=== PATIENT | female | born 1945 | race Caucasian/White ===

== ENCOUNTER 2018-08-25 11:58 | Observation (INO) | payer MEDICARE, SELFPAY ==
[2018-08-25] VITALS (12 sets, daily range): BP systolic 102–152; BP diastolic 33–48; PULSE 46–62; RESP 15–23; TEMP 36.4–37.2; O2SAT 94–98; BMI 26.2; BMI 24.1
--- NOTE | 2018-08-25 13:07 | CT_ITS ---
STUDY: CT BRAIN WITHOUT CONTRAST REASON FOR EXAM: Female, 73 years old. Confusion. RADIATION DOSAGE (If Supplied By Facility): CTDIvol = ( 44.99 ) mGy, DLP = ( 779.24 ) mGycm TECHNIQUE: Transaxial CT imaging of the brain was performed without administration of intravenous contrast material. Individualized dose optimization techniques were used for this CT. COMPARISON: 12/15/2016. FINDINGS: Normal soft tissue structures. Normal calvarium. There is moderate cerebral atrophy with widening of the extra-axial spaces and ventricular dilatation. There are areas of decreased attenuation within the white matter tracts of the supratentorial brain, consistent with microvascular disease changes. Focal density/calcification is again seen in the right thalamus unchanged since the prior exam. Normal brainstem. Normal cerebellum. There is no intracranial hemorrhage. There are no findings of an acute ischemic infarction. Normal visualized paranasal sinuses. CT/Brain/Head without Contrast IMPRESSION: 1. Chronic involutional changes of the brain. 2. No acute intracranial process. 3. No significant change since the previous examination. Electronically Signed: Tahir Ward MD at 13:49 EDT Tel , Service support ,
--- NOTE | 2018-08-25 13:07 | EKG12_ITS ---
Test Reason : NEURO S/SX Blood Pressure : / mmHG Vent. Rate : 061 BPM Atrial Rate : 061 BPM P-R Int : 118 ms QRS Dur : 082 ms QT Int : 430 ms P-R-T Axes : -20 023 054 degrees QTc Int : 432 ms Normal sinus rhythm Normal ECG Confirmed by DENISE LUGO, RUTH ([id number]), editor map SIMRAN MEEK ([id number]) on 08/30/2018 9:05:27 AM Referred By: XAVIER/DANNA Confirmed By:RUTH WALKER MD
--- NOTE | 2018-08-25 13:07 | RAD_ITS ---
STUDY: X-RAY CHEST REASON FOR EXAM: Female, 73 years old. Chest pain TECHNIQUE: Frontal view of the chest COMPARISON: None. FINDINGS: The lungs are clear. There are no pleural effusions. There is no pneumothorax. The heart is normal in size. The visualized osseous structures are within normal limits. RAD/Chest 1 View IMPRESSION: No acute thoracic pathology. Electronically Signed: Dash Hicks, at 13:51 EDT Tel , Service support ,
--- NOTE | 2018-08-25 13:15 | ED.VISSUMM ---
- ER Visit Summary Date of Service: 08/25/18 Chief Complaint: Left-sided weakness History of Present Illness: The patient is a 73 F who presents for episode of weakness this morning. Patient has history of dementia and knows her name at baseline. This morning family states the patient was staring around and did not answer questions. When asked what her name was she would not answer correctly but instead would give different names. Daughter thought that she was listing to the left while she was trying to help her walk to the bathroom. The weakness and staring off have since resolved. Patient is not on any blood thinners. She has a history of heavy tobacco use but is currently not a smoker. History of COPD. She lives at home with family. No known recent illnesses. Review of systems limited secondary to patient unable to answer these questions. Physical Examination: Vital signs: afebrile, hemodynamically stable, no hypoxia on room air General: well nourished, well developed, in no distress Skin: warm, dry, no rash, no pallor HEENT: normocephalic and atraumatic; PERRL, EOMI, moist mucous membranes Cardiovascular: regular rate and rhythm with holosystolic murmur, no peripheral edema, 2+ pulses all distal extremities Respiratory: No increased work of breathing, lungs have diffuse end expiratory wheezing Abdominal: Abdomen is soft, nontender with normoactive bowel sounds, no guarding or rebound, no masses MSK: Moves all extremities, no deformities, normal strength Neuro: Awake and alert, not oriented. Unable to tell me the month or her age, and patient states that she does not know these. Family states she would not no these at baseline. No facial droop, sensation and motor function intact and symmetric based on limited exam. Patient unable to follow directions and cooperate with a full NIH. Test Results: Clinical Impression(s) from Imaging Studies Brain CT 08/25/18 13:07 IMPRESSION: 1. Chronic involutional changes of the brain. 2. No acute intracranial process. 3. No significant change since the previous examination. Electronically Signed: Tahir Ward MD at 13:49 EDT Tel , Service support , Chest X-Ray 08/25/18 13:07 IMPRESSION: No acute thoracic pathology. Electronically Signed: Dash Hicks, at 13:51 EDT Tel , Service support , Abnormal Lab Results 08/25/18 08/25/18 08/25/18 12:10 12:10 12:10 WBC 9.5 RBC 3.78 L Hgb 11.9 L Hct 38.2 MCV 101.1 H MCH 31.5 MCHC 31.2 L RDW 13.5 RDW Differential 50.1 H Plt Count 243 MPV 10.1 Immature Gran % (Auto) 0.200 Neut % (Auto) 49.8 Lymph % (Auto) 37.6 [place] % (Auto) 8.6 Eos % (Auto) 3.4 Baso % (Auto) 0.4 Absolute Neuts (auto) 4.8 Absolute Lymphs (auto) 3.58 Total Counted Not Reportable PT 13.5 INR 1.1 APTT 34.1 Sodium 140 Potassium 5.1 Chloride 107 Carbon Dioxide 29.0 Anion Gap 4 L BUN 24 H Creatinine 1.11 H Estim Creat Clear Calc 35.17 Est GFR (MDRD) Af Amer 62 Est GFR (MDRD) Non-Af 51 L BUN/Creatinine Ratio 21.6 H Glucose 82 Calcium 9.2 Troponin I < 0.015 Urine Color Urine Clarity Urine pH Ur Specific [place] Urine Protein Urine Glucose (UA) Urine Ketones Urine Occult Blood Urine Nitrite Urine Bilirubin Urine Urobilinogen Ur Leukocyte Esterase Urine RBC Urine WBC Ur Squamous Epith Cells Urine Bacteria Urine Mucus 08/25/18 14:22 WBC RBC Hgb Hct MCV MCH MCHC RDW RDW Differential Plt Count MPV Immature Gran % (Auto) Neut % (Auto) Lymph % (Auto) [place] % (Auto) Eos % (Auto) Baso % (Auto) Absolute Neuts (auto) Absolute Lymphs (auto) Total Counted PT INR APTT Sodium Potassium Chloride Carbon Dioxide Anion Gap BUN Creatinine Estim Creat Clear Calc Est GFR (MDRD) Af Amer Est GFR (MDRD) Non-Af BUN/Creatinine Ratio Glucose Calcium Troponin I Urine Color Yellow Urine Clarity Cloudy Urine pH 8.0 Ur Specific [place] 1.010 Urine Protein 15 H Urine Glucose (UA) Normal Urine Ketones Negative Urine Occult Blood 50 H Urine Nitrite Positive H Urine Bilirubin Negative Urine Urobilinogen Normal Ur Leukocyte Esterase 500 H Urine RBC 0-5 SEEN Urine WBC 25-50 SEEN Ur Squamous Epith Cells 0 SEEN Urine Bacteria 3+ Urine Mucus 0 SEEN Medications Given Sodium Chloride () 500 mls @ 999 mls/hr IV .Q31M ONE Last Admin: 08/25/18 13:50 Dose: 999 mls/hr Emergency Department Course and Treatment: Family's description of patient's deficits this morning was concerning for unilateral weakness, with symptoms currently resolved. This is concerning for a TIA. The NIH exam is difficult to complete due to patient's inability to fully cooperate from her Alzheimer's dementia. However no focal deficits are noted on the exam. Stroke workup was performed. Head CT showed no intracranial hemorrhage or mass lesion. Urine was concerning for UTI, however patient's episode of focal neuro deficits cannot be explained by this. Patient's EKG showed a sinus rhythm with no ischemic changes. Troponin negative. Labs were otherwise unremarkable. Patient was not a candidate for TPA due to the low NIH (attributed to difficulty answering questions, which is baseline for patient) and last known well had been the prior night. Patient was discussed with the hospitalist for admission for further TIA workup. Treatment Plan: [] Disposition: [] Impression: Transient left-sided weakness, TIA, history of Alzheimer's dementia This note was generated with [employer] dictation software. It may contain incorrect words, spelling, and punctuation that were not noted in review of the chart prior to signing ED Disposition - Plan for ED Patient: Referrals: Vernon Moore DO [Primary Care Provider] -
--- NOTE | 2018-08-25 13:18 | ED.DCSUM_ITS ---
- ER Visit Summary Date of Service: 08/25/18 Chief Complaint: Left-sided weakness History of Present Illness: The patient is a 73 F who presents for episode of weakness this morning. Patient has history of dementia and knows her name at baseline. This morning family states the patient was staring around and did not answer questions. When asked what her name was she would not answer correctly but instead would give different names. Daughter thought that she was listing to the left while she was trying to help her walk to the bathroom. The weakness and staring off have since resolved. Patient is not on any blood thinners. She has a history of heavy tobacco use but is currently not a smoker. History of COPD. She lives at home with family. No known recent illnesses. Review of systems limited secondary to patient unable to answer these questions. Physical Examination: Vital signs: afebrile, hemodynamically stable, no hypoxia on room air General: well nourished, well developed, in no distress Skin: warm, dry, no rash, no pallor HEENT: normocephalic and atraumatic; PERRL, EOMI, moist mucous membranes Cardiovascular: regular rate and rhythm with holosystolic murmur, no peripheral edema, 2+ pulses all distal extremities Respiratory: No increased work of breathing, lungs have diffuse end expiratory wheezing Abdominal: Abdomen is soft, nontender with normoactive bowel sounds, no guarding or rebound, no masses MSK: Moves all extremities, no deformities, normal strength Neuro: Awake and alert, not oriented. Unable to tell me the month or her age, and patient states that she does not know these. Family states she would not no these at baseline. No facial droop, sensation and motor function intact and symmetric based on limited exam. Patient unable to follow directions and cooperate with a full NIH. Test Results: Clinical Impression(s) from Imaging Studies Brain CT 08/25/18 13:07 IMPRESSION: 1. Chronic involutional changes of the brain. 2. No acute intracranial process. 3. No significant change since the previous examination. Electronically Signed: Tahir Ward MD at 13:49 EDT Tel , Service support , Chest X-Ray 08/25/18 13:07 IMPRESSION: No acute thoracic pathology. Electronically Signed: Dash Hicks, at 13:51 EDT Tel , Service support , Abnormal Lab Results 08/25/18 08/25/18 08/25/18 12:10 12:10 12:10 WBC 9.5 RBC 3.78 L Hgb 11.9 L Hct 38.2 MCV 101.1 H MCH 31.5 MCHC 31.2 L RDW 13.5 RDW Differential 50.1 H Plt Count 243 MPV 10.1 Immature Gran % (Auto) 0.200 Neut % (Auto) 49.8 Lymph % (Auto) 37.6 [place] % (Auto) 8.6 Eos % (Auto) 3.4 Baso % (Auto) 0.4 Absolute Neuts (auto) 4.8 Absolute Lymphs (auto) 3.58 Total Counted Not Reportable PT 13.5 INR 1.1 APTT 34.1 Sodium 140 Potassium 5.1 Chloride 107 Carbon Dioxide 29.0 Anion Gap 4 L BUN 24 H Creatinine 1.11 H Estim Creat Clear Calc 35.17 Est GFR (MDRD) Af Amer 62 Est GFR (MDRD) Non-Af 51 L BUN/Creatinine Ratio 21.6 H Glucose 82 Calcium 9.2 Troponin I < 0.015 Urine Color Urine Clarity Urine pH Ur Specific [place] Urine Protein Urine Glucose (UA) Urine Ketones Urine Occult Blood Urine Nitrite Urine Bilirubin Urine Urobilinogen Ur Leukocyte Esterase Urine RBC Urine WBC Ur Squamous Epith Cells Urine Bacteria Urine Mucus 08/25/18 14:22 WBC RBC Hgb Hct MCV MCH MCHC RDW RDW Differential Plt Count MPV Immature Gran % (Auto) Neut % (Auto) Lymph % (Auto) [place] % (Auto) Eos % (Auto) Baso % (Auto) Absolute Neuts (auto) Absolute Lymphs (auto) Total Counted PT INR APTT Sodium Potassium Chloride Carbon Dioxide Anion Gap BUN Creatinine Estim Creat Clear Calc Est GFR (MDRD) Af Amer Est GFR (MDRD) Non-Af BUN/Creatinine Ratio Glucose Calcium Troponin I Urine Color Yellow Urine Clarity Cloudy Urine pH 8.0 Ur Specific [place] 1.010 Urine Protein 15 H Urine Glucose (UA) Normal Urine Ketones Negative Urine Occult Blood 50 H Urine Nitrite Positive H Urine Bilirubin Negative Urine Urobilinogen Normal Ur Leukocyte Esterase 500 H Urine RBC 0-5 SEEN Urine WBC 25-50 SEEN Ur Squamous Epith Cells 0 SEEN Urine Bacteria 3+ Urine Mucus 0 SEEN Medications Given Sodium Chloride () 500 mls @ 999 mls/hr IV .Q31M ONE Last Admin: 08/25/18 13:50 Dose: 999 mls/hr Emergency Department Course and Treatment: Family's description of patient's deficits this morning was concerning for unilateral weakness, with symptoms currently resolved. This is concerning for a TIA. The NIH exam is difficult to complete due to patient's inability to fully cooperate from her Alzheimer's dementia. However no focal deficits are noted on the exam. Stroke workup was performed. Head CT showed no intracranial hemorrhage or mass lesion. Urine was concerning for UTI, however patient's episode of focal neuro deficits cannot be explained by this. Patient's EKG showed a sinus rhythm with no ischemic changes. Troponin negative. Labs were otherwise unremarkable. Patient was not a candidate for TPA due to the low NIH (attributed to difficulty answering questions, which is baseline for patient) and last known well had been the prior night. Patient was discussed with the hospitalist for admission for further TIA workup. Treatment Plan: [] Disposition: [] Impression: Transient left-sided weakness, TIA, history of Alzheimer's dementia This note was generated with [employer] dictation software. It may contain incorrect words, spelling, and punctuation that were not noted in review of the chart prior to signing ED Disposition - Plan for ED Patient: Referrals: Vernon Moore DO [Primary Care Provider] -
--- NOTE | 2018-08-25 13:18 | NURSING ---
NO OLD EKGS
[2018-08-25 13:26] LABS: Absolute Lymphocyte Count 3.58 X10^3/ul (0.83-4.51); Absolute Neutrophil Count 4.8 X10^3/uL (2.0-7.7); Basophil# 0.04 X10^3/uL; Basophil% 0.4 % (0-1); Eosinophil# 0.32 X10^3/uL; Eosinophils% 3.4 % (0-5); Hematocrit 38.2 % (37-47); Hemoglobin 11.9 g/dl (12.0-15.0); Lymphocyte # 3.58 X10^3/ul (4.0); Lymphocyte % 37.6 % (19-41); Mean Corp Hgb Conc 31.2 g/gl (32-36); Mean Corpuscular Hgb 31.5 pg (27.0-32.0); Mean Corpuscular Volume 101.1 fL (81-99); Mean Platelet Vol. 10.1 fl (6.2-12.0); Monocyte# 0.82 X10^3/uL; Monocyte% 8.6 % (0-10); Neutrophil # 4.75 X10^3/uL (2.7-7.7); Neutrophil % 49.8 % (47-70); Platelet Count 243 K/mm3 (150-450); RBC Distribution Width CV 13.5 % (11.6-14.6); RBC Distribution Width SD 50.1 fl (35.1-43.9); Red Blood Count 3.78 M/mm3 (4.2-5.4); White Blood Count 9.5 K/mm3 (4.4-11.0)
[2018-08-25 13:27] LABS: POSITIVE COUNT NO; POSITIVE DIFFERENTIAL NO; POSITIVE MORPHOLOGY NO
[2018-08-25 13:29] LABS: International Normalized Ratio 1.1; Prothrombin Time (Protime)PT. 13.5 SECONDS (11.7-14.9)
[2018-08-25 13:30] LABS: Partial Thromboplast Time 34.1 Seconds (24.1-36.2)
--- NOTE | 2018-08-25 13:35 | ED.RN ---
Pt unable to follow commands to complete an NIH assessment. Dr Pereira gave orders to discontinue NIH
[2018-08-25 13:42] LABS: Anion Gap 4 (5-15); BUN 24 mg/dL (7-18); BUN/Creat Ratio 21.6 RATIO (10-20); Calcium,Total 9.2 mg/dL (8.5-10.1); Chloride 107 mmol/L (98-107); Creatinine, Serum 1.11 mg/dL (0.55-1.02); EST Glomerular Filtration Rate 51 mL/min (>60); Est Glom Filt Rate - Afr Amer 62 mL/min (>60); Estimated Creatinine Clearance 35.17 ml/min; Glucose 82 mg/dL (74-106); Potassium 5.1 mmol/L (3.5-5.1); Sodium Level 140 mmol/L (136-145)
[2018-08-25 14:28] LABS: Mucous, Urine 0 SEEN /hpf (<or=2+); Squamous Epithelial Cells - UA 0 SEEN /hpf (5-10)
[2018-08-25 14:32] LABS: Color, Urine Yellow (Yellow); Glucose, Dipstick Normal (Normal); Ketone-Dipstick Negative (Negative); Leukocyte Esterase-Dipstick 500 /ul (Negative); Nitrite-Dipstick Positive (Negative); Occult Blood-Urine 50 /ul (Negative); Protein-Dipstick 15 mg/dl (Negative); Urine Bilirubin Dipstick Negative (Negative); Urine Clarity Cloudy (Clear); Urine Urobilinogen Normal (Normal)
[2018-08-25 14:39] LABS: Bacteria 3+ /hpf (None Seen); Red Blood Cells-Urine 0-5 SEEN /hpf (0-5); White Blood Cells 25-50 SEEN /hpf (0-5)
--- NOTE | 2018-08-25 14:43 | NURSING ---
pcu tia obs monique
[2018-08-25] MEDS: Aspirin 300 MG Suppository RECTAL (15:19)
--- NOTE | 2018-08-25 15:22 | PCM.HP.STD ---
Problem List (1) Delirium Status: Acute History of Present Illness Date of Admission: 08/25/18 Chief Complaint: confusion. left sided weakness The patient is a 73 year old F who awoke today and was very confused. Patient was able to eat breakfast without incident but patient's family contacted other family members and recommended to evaluate for stroke. Noted to have left facial droop but also some left upper extremity weakness. Patient has advanced dementia and poor performance status at baseline. Patient at baseline cannot finish complete sentences and is confused during the day. [] Past Medical History Medical History: Medical History (Last Updated 08/25/18 @ 15:25 by Tai Clemens DO) Anxiety F41.9 CVA (cerebral vascular accident) I63.9 Dementia F03.90 Allergies No Known Allergies Allergy (Verified 08/25/18 15:18) Home Medications: Ambulatory Orders Medication Instructions Recorded Amlodipine Besylate 2.5 mg DAILY 08/25/18 Cyanocobalamin (Vitamin B-12) 2,500 mcg PO DAILY 08/25/18 [Vitamin B12] Escitalopram Oxalate 15 mg PO DAILY 08/25/18 Memantine HCl [Memantine HCl ER] 28 mg DAILY 08/25/18 Mirtazapine 15 mg DAILY 08/25/18 Risperidone 0.25 mg BID PRN PRN 08/25/18 Tolterodine Tartrate [Tolterodine 2 mg PO DAILY 08/25/18 Tartrate ER] Lives: With Family Smoking Status: Former smoker Tobacco Use: Non-smoker Alcohol: None Review of Systems Comment: Unable to obtain review of systems from patient as she is confused. Unable to gather family history from her as she is confused as well. VTE Information - Inpt Only VTE Present on Admission: No VTE Mechan Device Prophylaxis: None VTE Pharm Prophylaxis ordered?: Yes Patient Problems: Active and Suspected Problems Delirium (Acute) - Physical Exam General: - - Awake. Able to tell me her name but cannot time where she is nor the date. Anxious. Afebrile. HEENT: Atraumatic, PERRLA, Normocephalic, - - No scleral icterus Oral: Moist Mucosa, Dry Mucosa Neck: No Nodes, Thyroid Normal Size and Texture Lungs: Clear to auscultation, Normal air movement, No rhonchi, No wheeze Cardiovascular: Regular rate, Regular Rhythm, Normal S1, Normal S2, No murmurs Abdomen: Bowel Sounds Present, Soft, Non Tender, Non-Distended, No Hepato-splenomegaly Extremities: No edema, No Calf Tenderness Skin: No rashes, No breakdown Musculoskeletal: No Tenderness to Palpation of Joints or Extremities, No Muscle Wasting Neurological: - - Limited neurologic exam given the patient's confusion and dementia. Muscle strength appears to be 5 out of 5 in the upper extremity's bilaterally 4 out of 5 in the left lower extremity with prior that may be related with pain or just her overall condition not able to follow commands. Psych/Mental Status: Normal Affect, Appropriate Vital Signs Temp Pulse Resp BP Pulse Ox 37.2 C 57 L 15 126/48 H 94 08/25/18 14:00 08/25/18 15:19 08/25/18 15:19 08/25/18 15:19 08/25/18 15:19 Oxygen Delivery Method Room Air Weight: 65 kg Body Mass Index (BMI) 26.2 Laboratory Tests Past 24 Hrs 08/25/18 08/25/18 08/25/18 12:10 12:10 12:10 WBC 9.5 RBC 3.78 L Hgb 11.9 L Hct 38.2 MCV 101.1 H MCH 31.5 MCHC 31.2 L RDW 13.5 RDW Differential 50.1 H Plt Count 243 MPV 10.1 Immature Gran % (Auto) 0.200 Neut % (Auto) 49.8 Lymph % (Auto) 37.6 [place] % (Auto) 8.6 Eos % (Auto) 3.4 Baso % (Auto) 0.4 Absolute Neuts (auto) 4.8 Absolute Lymphs (auto) 3.58 Total Counted Not Reportable PT 13.5 INR 1.1 APTT 34.1 Sodium 140 Potassium 5.1 Chloride 107 Carbon Dioxide 29.0 Anion Gap 4 L BUN 24 H Creatinine 1.11 H Estim Creat Clear Calc 35.17 Est GFR (MDRD) Af Amer 62 Est GFR (MDRD) Non-Af 51 L BUN/Creatinine Ratio 21.6 H Glucose 82 Calcium 9.2 Troponin I < 0.015 Urine Color Urine Clarity Urine pH Ur Specific [place] Urine Protein Urine Glucose (UA) Urine Ketones Urine Occult Blood Urine Nitrite Urine Bilirubin Urine Urobilinogen Ur Leukocyte Esterase Urine RBC Urine WBC Ur Squamous Epith Cells Urine Bacteria Urine Mucus 08/25/18 14:22 WBC RBC Hgb Hct MCV MCH MCHC RDW RDW Differential Plt Count MPV Immature Gran % (Auto) Neut % (Auto) Lymph % (Auto) [place] % (Auto) Eos % (Auto) Baso % (Auto) Absolute Neuts (auto) Absolute Lymphs (auto) Total Counted PT INR APTT Sodium Potassium Chloride Carbon Dioxide Anion Gap BUN Creatinine Estim Creat Clear Calc Est GFR (MDRD) Af Amer Est GFR (MDRD) Non-Af BUN/Creatinine Ratio Glucose Calcium Troponin I Urine Color Yellow Urine Clarity Cloudy Urine pH 8.0 Ur Specific [place] 1.010 Urine Protein 15 H Urine Glucose (UA) Normal Urine Ketones Negative Urine Occult Blood 50 H Urine Nitrite Positive H Urine Bilirubin Negative Urine Urobilinogen Normal Ur Leukocyte Esterase 500 H Urine RBC 0-5 SEEN Urine WBC 25-50 SEEN Ur Squamous Epith Cells 0 SEEN Urine Bacteria 3+ Urine Mucus 0 SEEN Clinical Impression(s) from Imaging Studies Brain CT 08/25/18 13:07 IMPRESSION: 1. Chronic involutional changes of the brain. 2. No acute intracranial process. 3. No significant change since the previous examination. Electronically Signed: Tahir Ward MD at 13:49 EDT Tel , Service support , Chest X-Ray 08/25/18 13:07 IMPRESSION: No acute thoracic pathology. Electronically Signed: Dash Hicks, at 13:51 EDT Tel , Service support , Assessment/Plan All Active Problems Delirium (Acute) 1. Acute delirium: Patient did have some left-sided weakness in the left lower extremity but is difficult to ascertain if this is actual legitimate weakness or just due to pain or an inability to follow commands. My feeling is that most of this is more metabolic or just a waxing and waning of her mental status due to her advanced dementia. Proceed further with additional neurologic evaluation with CT angiogram of the head and neck, echocardiogram and a repeat head CT on the . Continue with aspirin. Patient will have physical, occupational and speech therapy evaluate. Patient unable to be passed for a dysphasia evaluation in the emergency room due to this will need to wait on speech therapy to see her to advance her diet. Given the patient's dementia, and the fact that we do not have conscious sedation available for MRIs, I would not bother to order an MRI because of note the patient would not be able to tolerate the procedure. Since his met possibly metabolic we will treat the possible UTI as well as some IV fluids as her mucous membranes are dry. 2. Dementia: Likely vascular type given her prior history of strokes which were diagnosed after the fact. 3. Advanced care planning: Discussed with family at bedside. Recommended no CPR. I did tell them that they could think about it and decide later point whether this admission or later point but I strongly advised against CPR and feeding tube. 4. DVT prophylaxis with low molecular weight heparin 5. Disposition: Patient being brought under observation status. 6. Pyuria: Unclear if this is actual urinary tract infection or not but given patient's dementia will elect to treat it. We will use IV ceftriaxone for now. Code Visit OBSV E&M: 53491 Initial observation care L3
--- NOTE | 2018-08-25 16:53 | ECHOD_ITS ---
Reason For Study: TIA/CVA Procedure This was a 2D Doppler, Color Flow transthoracic echocardiogram. Exam performed portable in patient room. Left Ventricle Normal LV size. Left ventricular systolic function is lower limits of normal. The estimated ejection fraction is 50 %. Stage 2 diastolic dysfunction. No regional wall motion abnormalities noted. Right Ventricle Normal RV size. Normal systolic function. Atria Normal left atrium. Normal right atrium. Mitral Valve There is moderate mitral annular calcification. Trivial eccentric mitral valve insufficiency. Tricuspid Valve Normal tricuspid valve. Mild to moderate (1-2+) tricuspid valve insufficiency. Pulmonary artery systolic pressure is 40 mmHg. Aortic Valve Trisinus/trileaflet aortic valve. Moderate focal aortic valve calcification. Moderately severe (3+) eccentric aortic valve insufficiency. Pulmonic Valve Normal pulmonic valve. Great Vessels Normal aortic root. The pulmonary artery is normal size. Normal inferior vena cava. Pericardium/Pleural No pericardial effusion. Medication Performed a rapid injection of agitated mix of 9 cc saline and 1cc air to assess for atrial septal defect. MMode/2D Measurements & Calculations LVIDd: 4.8 cm IVSd: 1.3 cm LVOT diam: 2.0 cm LVIDs: 3.4 cm LVPWd: 1.1 cm RVDd: 2.7 cm FS: 30.0 % LVOT area: 3.0 cm2 Ao root diam: 2.1 cm LAV(MOD-bp): 39.7 ml LVAd ap4: 27.6 cm2 LAV(MOD-bp) Indexed: 24.0 ml/m2 EDV(MOD-sp4): 84.7 ml LAV(MOD-sp2): 40.2 ml EDV(sp4-el): 87.5 ml LAV(MOD-sp4): 34.0 ml LVAs ap4: 15.2 cm2 ESV(MOD-sp4): 30.3 ml ESV(sp4-el): 30.6 ml EF(MOD-sp4): 64.2 % EF(sp4-el): 65.0 % SV(MOD-sp4): 54.4 ml SV(sp4-el): 56.9 ml LA A4 area: 15.0 cm2 LA dimension(2D): 2.8 cm RA A4 area: 11.3 cm2 Time Measurements MV dec time: 0.18 sec Doppler Measurements & Calculations MV E max mickey: 100.3 cm/sec Lat Peak E' Mickey: 6.3 cm/sec Med Peak E' Mickey: 5.0 cm/sec MV A max mickey: 111.6 cm/sec E/E' lat: 15.9 E/E' med: 19.9 MV E/A: 0.90 MV V2 max: 123.4 cm/sec MV P1/2t max mickey: 94.0 cm/sec Ao V2 max: 395.1 cm/sec MV max P.1 mmHg MV P1/2t: 100.8 msec Ao max P.4 mmHg MV V2 mean: 66.1 cm/sec MV dec slope: 273.3 cm/sec2 Ao V2 mean: 278.2 cm/sec MV mean P.0 mmHg MVA(P1/2t): 2.2 cm2 Ao mean P.5 mmHg MV V2 VTI: 42.9 cm Ao V2 VTI: 109.7 cm MVA(VTI): 2.4 cm2 ALISSON(I,D): 0.95 cm2 ALISSON(V,D): 0.90 cm2 AI max mickey: 468.8 cm/sec LV V1 max: 118.0 cm/sec SV(LVOT): 103.8 ml AI max P.0 mmHg LV V1 max P.6 mmHg LV V1 mean P.3 mmHg AI dec slope: 328.9 cm/sec2 LV V1 mean: 86.9 cm/sec AI P1/2t: 417.6 msec LV V1 VTI: 34.4 cm PA V2 max: 87.6 cm/sec TR max mickey: 295.9 cm/sec TR max P.0 mmHg Interpretation Summary Normal LV size. Left ventricular systolic function is lower limits of normal. The estimated ejection fraction is 50 %. Stage 2 diastolic dysfunction. Mild to moderate (1-2+) tricuspid valve insufficiency. Pulmonary artery systolic pressure is 40 mmHg. Moderate focal aortic valve calcification. Moderately severe (3+) eccentric aortic valve insufficiency. Ordering Physician: Tai Clemens Referring Physician: Vernon Moore Performed By: Estee Nolasco, VIKI, RVT
--- NOTE | 2018-08-25 17:53 | NURSING ---
[facility] limited d/t confusion
[2018-08-25] MEDS: Ceftriaxone 1 GM/50 ML BAG IV (18:09)
[2018-08-26] VITALS (14 sets, daily range): BP systolic 108–151; BP diastolic 37–58; PULSE 47–64; RESP 14–20; TEMP 36.6–37.3; O2SAT 93–97; BMI 24.1
[2018-08-26] MEDS: 0.9% Normal Saline 1,000 ML 75 ML IV ×2 (04:57→22:42)
[2018-08-26 06:34] LABS: Cholesterol 184 mg/dL (200); High Density Lipoprotein 44 mg/dL; Triglycerides 128 mg/dL; Very Low Density Lipoprotein 26 mg/dL (5-40)
[2018-08-26] MEDS: Enoxaparin 40 MG/0.4 ML Syringe SC ×2 (09:06→10:32)
[2018-08-26] MEDS: Memantine Hydrochloride 10 MG Tablet PO ×2 (09:06→22:42)
[2018-08-26] MEDS: Escitalopram Oxalate 10 MG Tablet 15 MG PO (09:06)
[2018-08-26] MEDS: Ceftriaxone 1 GM/50 ML BAG IV (09:06)
[2018-08-26] MEDS: amLODIPine 2.5 MG Tablet PO (09:06)
[2018-08-26] MEDS: Tolterodine Tartrate 2 MG CAP.SA PO (09:06)
[2018-08-26] MEDS: Mirtazapine 15 MG Tablet PO (09:06)
--- NOTE | 2018-08-26 09:24 | NURSING ---
[facility] limited d/t confusion
--- NOTE | 2018-08-26 10:17 | PN_ITS ---
Patient Problems: Active and Suspected Problems (Last Updated 08/25/18 @ 15:25 by Tai Clemens DO) Delirium (Acute) Subjective: Patient is a 73-year-old lady with history of advanced Alzheimer's dementia presented with transient right-sided weakness. Patient was also found to have acute cystitis on admission admitted to monitored bed for subsequent management. An MRI was not ordered in view of patient not being cooperative (attributed to his underlying dementia) Objective: GENERAL: Patient in no apparent distress HEENT: Atraumatic; moist oral mucosa EYES; Anicteric, Normal Conjunctiva NECK; supple, normal thyroid, no distended JVD. RESPIRATORY: Diminished to auscultation bilaterally, CARDIOVASCULAR: Regular S1 S2, no audible murmurs GI: soft, non-tender, normoactive bowel sounds, : No Renal angle tenderness; EXTREMITIES: No edema, no clubbing, no cyanosis. NEURO: Awake; no lateralizing signs. SKIN: No Rash PSYCH; Normal affect Vitals/I&O's: Vital Signs Temp Pulse Resp BP Pulse Ox 97.9 F 51 L 16 149/58 H 93 08/26/18 08:50 08/26/18 08:50 08/26/18 08:50 08/26/18 08:50 08/26/18 08:50 Oxygen Delivery Method Room Air Weight: 61.8 kg Body Mass Index (BMI) 24.1 Intake and Output for Last 24 Hours 08/24/18 08/25/18 08/26/18 22:59 23:59 23:59 Intake Total 566 / 566 Balance 566 / 566 Laboratory Results 08/25/18 12:10: WBC 9.5, RBC 3.78 L, Hgb 11.9 L, Hct 38.2, MCV 101.1 H, MCH 31.5, MCHC 31.2 L, RDW 13.5, RDW Differential 50.1 H, Plt Count 243, MPV 10.1, Immature Gran % (Auto) 0.200, Neut % (Auto) 49.8, Lymph % (Auto) 37.6, [place] % (Auto) 8.6, Eos % (Auto) 3.4, Baso % (Auto) 0.4, Absolute Neuts (auto) 4.8, Absolute Lymphs (auto) 3.58, Total Counted Not Reportable 08/25/18 12:10: PT 13.5, INR 1.1, APTT 34.1 08/25/18 12:10: Sodium 140, Potassium 5.1, Chloride 107, Carbon Dioxide 29.0, Anion Gap 4 L, BUN 24 H, Creatinine 1.11 H, Estim Creat Clear Calc 35.17, Est GFR (MDRD) Af Amer 62, Est GFR (MDRD) Non-Af 51 L, BUN/Creatinine Ratio 21.6 H, Glucose 82, Calcium 9.2, Troponin I < 0.015 08/25/18 14:22: Urine Color Yellow, Urine Clarity Cloudy, Urine pH 8.0, Ur Specific [place] 1.010, Urine Protein 15 H, Urine Glucose (UA) Normal, Urine Ketones Negative, Urine Occult Blood 50 H, Urine Nitrite Positive H, Urine Bilirubin Negative, Urine Urobilinogen Normal, Ur Leukocyte Esterase 500 H, Urine RBC 0-5 SEEN, Urine WBC 25-50 SEEN, Ur Squamous Epith Cells 0 SEEN, Urine Bacteria 3+, Urine Mucus 0 SEEN 08/26/18 05:20: Triglycerides 128, Cholesterol 184, LDL Cholesterol 114, VLDL Cholesterol 26, HDL Cholesterol 44 Current Medications Acetaminophen (Tylenol) 650 mg PO Q6H PRN PRN PRN Reason: Mild Pain (1-3)/Temp > 100.7 F Amlodipine Besylate (Norvasc) 2.5 mg PO DAILY [facility] Last Admin: 08/26/18 09:06 Dose: 2.5 mg Aspirin (Aspirin, Baby) 81 mg PO DAILY@0800 [facility] Enoxaparin Sodium (Lovenox) 40 mg SC DAILY@1000 [facility] Last Admin: 08/26/18 09:06 Dose: 40 mg Escitalopram Oxalate (Lexapro) 15 mg PO DAILY [facility] Last Admin: 08/26/18 09:06 Dose: 15 mg Haloperidol Lactate (Haldol) 1 mg IM Q6H PRN PRN PRN Reason: combatitiveness Sodium Chloride () 500 mls @ 999 mls/hr IV .Q31M ONE Last Admin: 08/25/18 13:50 Dose: 999 mls/hr Sodium Chloride () 1,000 mls @ 75 mls/hr IV .[id number] [facility] Last Admin: 08/26/18 04:57 Dose: 75 mls/hr Ceftriaxone Sodium (Rocephin) 1 gm in 50 mls @ 100 mls/hr IV Q24 [facility] Last Admin: 08/26/18 09:06 Dose: 100 mls/hr Magnesium Hydroxide (Milk Of Magnesia) 30 ml PO DAILY PRN PRN Reason: Constipation Memantine (Namenda) 10 mg PO BID [facility] Last Admin: 08/26/18 09:06 Dose: 10 mg Mirtazapine (Remeron) 15 mg PO DAILY [facility] Last Admin: 08/26/18 09:06 Dose: 15 mg Ondansetron HCl (Zofran) 4 mg IV Q8H PRN PRN PRN Reason: NAUSEA Risperidone (Risperdal) 0.25 mg PO BID PRN PRN PRN Reason: AGITATION Sodium Chloride () 5 - 15 ml IV UD PRN PRN Reason: SALINE FLUSH Tolterodine Tartrate (Detrol La) 2 mg PO DAILY [facility] Last Admin: 08/26/18 09:06 Dose: 2 mg Medical Necessity - Tobacco Use Smoking Status: Former smoker Tobacco Use: Non-smoker Assessment/Plan All Active Problems (Last Updated 08/25/18 @ 15:25 by Tai Clemens DO) Delirium (Acute) Patient is a 73-year-old lady with history of advanced Alzheimer's dementia presented with transient right-sided weakness. Patient was also found to have acute cystitis on admission admitted to [facility] bed for subsequent management. An MRI was not ordered in view of patient not being cooperative (attributed to his underlying dementia) 1. Transient ischemic attack patient presented with transient left-sided weakness which has since resolved. CT of the head obtained demonstrated only chronic involutional changes of the brain. CTA was ordered for subsequent evaluation. An MRI was not ordered in view of concerns for patient's cooperation 2. Acute delirium secondary to acute cystitis 3. Acute cystitis urine culture so far positive for E. coli final identification and sensitivities pending patient is currently on Rocephin 4. Dementia (vascular versus Alzheimer's) with behavioral agitation attributed to patient underlying infectious etiology patient is on haloperidol as needed 5. DVT prophylaxis SC Lovenox Active Medications Acetaminophen (Tylenol) 650 mg PO Q6H PRN PRN PRN Reason: Mild Pain (1-3)/Temp > 100.7 F Amlodipine Besylate (Norvasc) 2.5 mg PO DAILY [facility] Last Admin: 08/26/18 09:06 Dose: 2.5 mg Aspirin (Aspirin, Baby) 81 mg PO DAILY@0800 [facility] Last Admin: 08/26/18 11:03 Dose: Not Given Enoxaparin Sodium (Lovenox) 40 mg SC DAILY@1000 [facility] Last Admin: 08/26/18 10:32 Dose: 40 mg Escitalopram Oxalate (Lexapro) 15 mg PO DAILY [facility] Last Admin: 08/26/18 09:06 Dose: 15 mg Haloperidol Lactate (Haldol) 1 mg IM Q6H PRN PRN PRN Reason: combatitiveness Sodium Chloride () 500 mls @ 999 mls/hr IV .Q31M [facility] Last Admin: 08/25/18 13:50 Dose: 999 mls/hr Sodium Chloride () 1,000 mls @ 75 mls/hr IV .[id number] [facility] Last Admin: 08/26/18 04:57 Dose: 75 mls/hr Ceftriaxone Sodium (Rocephin) 1 gm in 50 mls @ 100 mls/hr IV Q24 [facility] Last Admin: 08/26/18 09:06 Dose: 100 mls/hr Magnesium Hydroxide (Milk Of Magnesia) 30 ml PO DAILY PRN PRN Reason: Constipation Memantine (Namenda) 10 mg PO BID [facility] Last Admin: 08/26/18 09:06 Dose: 10 mg Mirtazapine (Remeron) 15 mg PO DAILY [facility] Last Admin: 08/26/18 09:06 Dose: 15 mg Ondansetron HCl (Zofran) 4 mg IV Q8H PRN PRN PRN Reason: NAUSEA Risperidone (Risperdal) 0.25 mg PO BID PRN PRN PRN Reason: AGITATION Sodium Chloride () 5 - 15 ml IV UD PRN PRN Reason: SALINE FLUSH Tolterodine Tartrate (Detrol La) 2 mg PO DAILY [facility] Last Admin: 08/26/18 09:06 Dose: 2 mg Clinical Impression(s) from Imaging Studies Brain CT 08/25/18 13:07 IMPRESSION: 1. Chronic involutional changes of the brain. 2. No acute intracranial process. 3. No significant change since the previous examination. Electronically Signed: Tahir Ward MD at 13:49 EDT Tel , Service support , Chest X-Ray 08/25/18 13:07 IMPRESSION: No acute thoracic pathology. Electronically Signed: Dash Hicks, at 13:51 EDT Tel , Service support , Code Visit OBSV E&M: 32462 Subsequent observation care L3
[2018-08-26] MEDS: Aspirin 81 MG TAB.CHEW PO (10:32)
--- NOTE | 2018-08-26 12:00 | CT_ITS ---
STUDY: CTA NECK WITH CONTRAST REASON FOR EXAM: Female, 73 years old. CVA RADIATION DOSAGE (If Supplied By Facility): CTDIvol = ( 20.18 ) mGy, DLP = ( 1315.57 ) mGycm TECHNIQUE: CT angiography with multi-detector data acquisition was performed from the aortic arch to the skull base following intravenous administration of Isovue 370 100CC IV. MIP images were reconstructed from the axial data set. Post-processing of the angiographic images was performed, with multiplanar reformation and 3D reconstruction. Individualized dose optimization techniques were used for this CT. COMPARISON: None. FINDINGS: AORTIC ARCH: Normal visualized aortic arch. There is a prominent appearance of the takeoff of the left subclavian. RIGHT CAROTID ARTERIES: There is atherosclerotic tortuous elongation of the right common carotid artery. There is mild atherosclerotic plaque formation with minimal narrowing of the right carotid bulb. There is mild atherosclerotic plaque formation of the origin of the right internal carotid artery with less than 50% cross sectional diameter stenosis. Normal visualized cervical portion of the right internal carotid artery. Normal origin of the right external carotid artery (ECA). LEFT CAROTID ARTERIES: There is atherosclerotic tortuous elongation of the left common carotid artery. There is moderate atherosclerotic plaque formation with moderate narrowing of the carotid bulb. There is mild atherosclerotic plaque formation of the origin of the left internal carotid artery with less than 50% cross sectional diameter stenosis. There is atherosclerotic tortuous elongation of the cervical portion of the left internal carotid artery. Normal origin of the left external carotid artery (ECA). VERTEBRAL ARTERIES: Normal bilateral vertebral arteries. There is visualized degenerative change in the cervical spine. There is a solid spiculated mass within the left apex measuring 1.[address]/CTA Neck W/WO Contrast IMPRESSION: Less than 50% stenosis bilateral internal carotid arteries. Solid spiculated mass measuring 1.3 x 1.2 cm in the left apex highly suspicious for neoplasm. Recommend CT scan of the chest which can performed without contrast to evaluate the pulmonary parenchyma. Electronically Signed: Marnie Umaña MD at 19:58 EDT Tel , Service support ,
--- NOTE | 2018-08-26 12:00 | CT_ITS ---
STUDY: CTA OF THE BRAIN REASON FOR EXAM: Female, 73 years old. CVA RADIATION DOSAGE (If Supplied By Facility): CTDIvol = ( 20.18 ) mGy, DLP = ( 1315.57 ) mGycm TECHNIQUE: CT angiography was performed with a multi-detector CT scanner. Data acquisition was obtained from the skull base through the vertex following intravenous administration of Isovue 370 100CC IV. MIP images were reconstructed from the axial data set. Post-processing of the angiographic images was performed, with multiplanar reformation and 3D reconstruction. Individualized dose optimization techniques were used for this CT. COMPARISON: CT brain August 25, 2018 FINDINGS: Stable calcification right thalamus. Normal bilateral petrous carotid arteries. Normal right cavernous carotid artery with a normal supraclinoid bifurcation. Normal left cavernous carotid artery with a normal supraclinoid bifurcation. Normal right A1 segments of the anterior cerebral artery. Normal left A1 segments of the anterior cerebral artery. Normal intact anterior communicating artery (ACOM). Normal bilateral A2 segments of the anterior cerebral arteries. Normal right M1 and M2 segments of the middle cerebral arteries, with a normal M1 bifurcation. Normal left M1 and M2 segments of the middle cerebral arteries, with a normal M1 bifurcation. There is non-visualization of the right posterior communicating artery (PCOM). There is non-visualization of the left posterior communicating artery (PCOM). Normal bilateral vertebral arteries. Normal basilar artery with a normal basilar bifurcation. The visualized bilateral superior cerebellar (SCA) arteries are normal. Normal bilateral P1, P2 and visualized P3 segments of the posterior cerebral arteries. There is no demonstrated aneurysm of the [place]. There is no demonstrated abnormality of the visualized brain. CT/CTA Head W/WO Contrast IMPRESSION: Normal [place] without a demonstrated aneurysm or hemodynamically significant stenosis. Electronically Signed: Nicola Leos MD at 20:37 EDT , Service support ,
--- NOTE | 2018-08-26 16:03 | CASEMGMT ---
This TINA DEL CID to room with RAE form at this time, explanation done to pt/family-family voices understanding and daughter signs RAE form at this time. Pt has dementia and unable to sign for self at this time. Original to chart and copy to family at this time. Pt/family voice no further questions/concerns/needs at this time. [place] TINA DEL CID
[2018-08-27 00:13] VITALS: BP 125/39; PULSE 55; RESP 14; TEMP 36.8; O2SAT 93
--- NOTE | 2018-08-27 00:16 | NURSING ---
Pt difficult to assess. She had a hx of dementia. She does not follow commands well. Pt daughter states she seems to be at baseline. States pt doesn't do well when she is woken up or is tired.
[2018-08-27 01:05] VITALS: BMI 24.1
[2018-08-27 02:54] VITALS: PULSE 49
--- NOTE | 2018-08-27 04:05 | NURSING ---
Pt not following commands well at this time. Pt awake, will smile and shake head yes.
[2018-08-27 04:08] VITALS: BP 108/34; PULSE 50; RESP 13; TEMP 36.8; O2SAT 93
[2018-08-27 07:00] VITALS: PULSE 48
[2018-08-27] MEDS: Ceftriaxone 1 GM/50 ML BAG IV (09:44)
[2018-08-27] MEDS: Aspirin 81 MG TAB.CHEW PO (09:44)
[2018-08-27] MEDS: Memantine Hydrochloride 10 MG Tablet PO (09:45)
[2018-08-27] MEDS: Tolterodine Tartrate 2 MG CAP.SA PO (09:45)
[2018-08-27] MEDS: Mirtazapine 15 MG Tablet PO (09:45)
[2018-08-27] MEDS: Escitalopram Oxalate 10 MG Tablet 15 MG PO (09:45)
[2018-08-27] MEDS: amLODIPine 2.5 MG Tablet PO (09:45)
[2018-08-27] MEDS: Enoxaparin 40 MG/0.4 ML Syringe SC (09:46)
[2018-08-27 09:50] VITALS: BP 129/33; PULSE 57; RESP 16; TEMP 36.7; O2SAT 95
--- NOTE | 2018-08-27 09:54 | DCINST_ITS ---
- Discharge Diagnoses Current Active Problems: Current Active and Chronic Problems (Last Updated 08/25/18 @ 15:25 by Tai Clemens DO) Delirium (Acute) You will use the following diet at home:: No restrictions Allergies/Adverse Reactions: Allergies No Known Allergies Allergy (Verified 08/25/18 15:18) Medications to take at Discharge Cyanocobalamin (Vitamin B-12) [Vitamin B12] 2,500 mcg PO DAILY 08/25/18 Escitalopram Oxalate 15 mg PO DAILY 08/25/18 Memantine HCl [Memantine HCl ER] 28 mg DAILY 08/25/18 Mirtazapine 15 mg DAILY 08/25/18 Risperidone 0.25 mg BID PRN PRN 08/25/18 Tolterodine Tartrate [Tolterodine Tartrate ER] 2 mg PO DAILY 08/25/18 Amlodipine Besylate 2.5 mg PO DAILY #0 08/27/18 Ciprofloxacin [Cipro] 250 mg PO BID #6 tablet 08/27/18 The following prescriptions were given: Ciprofloxacin [Cipro] 250 mg PO BID #6 tablet Primary Care Physician: Vernon Moore DO [Primary Care Provider] - Please follow up with your Primary Care Physician in: in 5-7 days Test Results: Test results from this visit will be discussed in further detail at your follow- up appointment, if applicable. Proposed Discharge Date: 08/27/18
[2018-08-27 09:55] VITALS: BMI 24.1
--- NOTE | 2018-08-27 09:56 | DS.PCM_ITS ---
Discharge Date and Diagnosis - Problem List Patient Problems: Active and Suspected Problems (Last Updated 08/25/18 @ 15:25 by Tai Clemens DO) E. coli UTI (Acute) Delirium (Acute) Date of Admission: 08/25/18 Date of Discharge: 08/27/18 - Primary Discharge Diagnosis Active and Suspected Problems (Last Updated 08/25/18 @ 15:25 by Tai Clemens DO) E. coli UTI (Acute) Delirium (Acute) - Secondary Discharge Diagnosis Chronic Problems (Last Updated 08/25/18 @ 15:25 by Tai Clemens DO) Dementia (Chronic) Hospital Course and Treatment Imaging Results: Clinical Impression(s) from Imaging Studies Brain CT 08/25/18 13:07 IMPRESSION: 1. Chronic involutional changes of the brain. 2. No acute intracranial process. 3. No significant change since the previous examination. Electronically Signed: Tahir Ward MD at 13:49 EDT Tel , Service support , Chest X-Ray 08/25/18 13:07 IMPRESSION: No acute thoracic pathology. Electronically Signed: Dash Hicks at 13:51 EDT Tel , Service support , Head CTA 08/26/18 12:00 IMPRESSION: Normal [place] without a demonstrated aneurysm or hemodynamically significant stenosis. Electronically Signed: Nicola Leos MD at 20:37 EDT , Service support , Neck CTA 08/26/18 12:00 IMPRESSION: Less than 50% stenosis bilateral internal carotid arteries. Solid spiculated mass measuring 1.3 x 1.2 cm in the left apex highly suspicious for neoplasm. Recommend CT scan of the chest which can performed without contrast to evaluate the pulmonary parenchyma. Electronically Signed: Marnie Umaña MD at 19:58 EDT Tel , Service support , Summary of Care Provided: Patient is a 73-year-old lady with history of advanced Alzheimer's dementia presented with transient right-sided weakness. Patient was also found to have acute cystitis on admission admitted to monitored bed for subsequent management. An MRI was not ordered in view of patient not being cooperative (attributed to his underlying dementia) 1. Transient ischemic attack patient presented with transient left-sided weakness which has since resolved. CT of the head obtained demonstrated only chronic involutional changes of the brain. CTA was ordered for subsequent evaluation (Less than 50% stenosis bilateral internal carotid arteries.). An MRI was not ordered in view of concerns for patient's cooperation 2. Acute delirium secondary to acute cystitis 3. Acute cystitis with E. coli final patient was treated appropriately 4. Dementia (vascular versus Alzheimer's) with behavioral agitation attributed to patient underlying infectious etiology patient is on haloperidol as needed 5. DVT prophylaxis SC Lovenox Patient Problems: Active and Suspected Problems (Last Updated 08/25/18 @ 15:25 by Tai Clemens DO) E. coli UTI (Acute) Delirium (Acute) Objective: GENERAL: Patient in no apparent distress HEENT: Atraumatic; moist oral mucosa EYES; Anicteric, Normal Conjunctiva NECK; supple, normal thyroid, no distended JVD. RESPIRATORY: Diminished to auscultation bilaterally, CARDIOVASCULAR: Regular S1 S2, no audible murmurs GI: soft, non-tender, normoactive bowel sounds, : No Renal angle tenderness; EXTREMITIES: No edema, no clubbing, no cyanosis. NEURO: Awake; no lateralizing signs. - Physical Exam Vital Signs Temp Pulse Resp BP Pulse Ox 98.0 F 57 L 16 129/33 H 95 08/27/18 09:50 08/27/18 09:50 08/27/18 09:50 08/27/18 09:50 08/27/18 09:50 Oxygen Delivery Method Room Air Weight: 61.8 kg Body Mass Index (BMI) 24.1 Intake and Output for Last 24 Hours 08/25/18 08/26/18 08/27/18 23:59 23:59 23:59 Intake Total 2300 / 2300 439 / 439 Balance 2300 / 2300 439 / 439 Microbiology Past 72 Hours 08/25/18 14:22 Urine Culture - Final Urine, Catheterized Presumptive E. coli Discharge Diet: No Restrictions Home Medications: Medications to take at Discharge Cyanocobalamin (Vitamin B-12) [Vitamin B12] 2,500 mcg PO DAILY 08/25/18 Escitalopram Oxalate 15 mg PO DAILY 08/25/18 Memantine HCl [Memantine HCl ER] 28 mg DAILY 08/25/18 Mirtazapine 15 mg DAILY 08/25/18 Risperidone 0.25 mg BID PRN PRN 08/25/18 Tolterodine Tartrate [Tolterodine Tartrate ER] 2 mg PO DAILY 08/25/18 Amlodipine Besylate 2.5 mg PO DAILY #0 08/27/18 Ciprofloxacin [Cipro] 250 mg PO BID #6 tablet 08/27/18 Following Prescrptions Were Given to Patient: Ciprofloxacin [Cipro] 250 mg PO BID #6 tablet Primary Care Physician: Vernon Moore DO [Primary Care Provider] - Please follow up with your Primary Care Physician in: in 5-7 days Disposition: Home Minutes spent on discharge:: 35 Medical Necessity - Tobacco Use Smoking Status: Former smoker Tobacco Use: Non-smoker Meaningful Use Info Meaningful Use Diagnoses (Choose all that apply): None applicable Code Visit OBSV E&M: 24100 Observation care discharge
--- NOTE | 2018-08-27 10:36 | PHA.DC.MR ---
Pharmacy Service has performed discharge medication reconciliation for this patient. Of note; not counseling at this time, no family in room and patient has significant hx of dementia, unable to follow commands well per nursing notes. The patient's discharge medication list was reviewed for discrepancies and discrepancies were resolved. Home Medications Cyanocobalamin (Vitamin B-12) [Vitamin B12] 2,500 mcg PO DAILY 08/25/18 Escitalopram Oxalate 15 mg PO DAILY 08/25/18 Memantine HCl [Memantine HCl ER] 28 mg DAILY 08/25/18 Mirtazapine 15 mg DAILY 08/25/18 Risperidone 0.25 mg BID PRN PRN 08/25/18 Tolterodine Tartrate [Tolterodine Tartrate ER] 2 mg PO DAILY 08/25/18 Amlodipine Besylate 2.5 mg PO DAILY #0 08/27/18 Ciprofloxacin [Cipro] 250 mg PO BID #6 tablet 08/27/18
--- NOTE | 2018-08-27 11:32 | CASEMGMT ---
This RN CM to room to speak with pt's daughter at this time and she states no needs or concerns with pt going home at this time. Pt has a niece that cares for her and daughter states no need for any further DME at this time. Daughter states no further questions/concerns/needs at this time. [place] TINA DEL CID
== END 2018-08-27 09:53 | disposition home or self-care (01) ==
LOC: ED 15:18 → PCU 16:04
PROVIDERS: Emergency Provider Emergency Medicine; Family Provider Family Medicine; PCP Family Medicine; Visit Provider Internal Medicine
DX: G45.9 Transient cerebral ischemic attack, unspecified (principal); N30.00 Acute cystitis without hematuria; B96.20 Unspecified Escherichia coli [E. coli] as the cause of diseases classified elsewhere; G30.9 Alzheimer's disease, unspecified; F02.81 Dementia in other diseases classified elsewhere, unspecified severity, with behavioral disturbance; F05 Delirium due to known physiological condition; J44.9 Chronic obstructive pulmonary disease, unspecified; F41.9 Anxiety disorder, unspecified; Z87.891 Personal history of nicotine dependence; Z79.899 Other long term (current) drug therapy; R53.1 Weakness; I10 Essential (primary) hypertension
CPT/HCPCS: 36415; 70450; 70496; 70498; 71045; 80048; 80061; 81001; 84484; 85025; 85610; 85730; 87086; 87088; 87186; 92610; 93005; 93306; 96361; 96365; 96366; 96372; 97162; 97166; 99218; 99285; J7030; J7040; Q9967; A4216; G0378

== ENCOUNTER 2019-01-05 19:00 | Inpatient (IN) | payer MEDICARE, SELFPAY ==
[2019-01-05 19:00] VITALS: BMI 26.2
[2019-01-05 19:02] VITALS: BP 133/46; PULSE 69; RESP 18; TEMP 37.3; O2SAT 96
[2019-01-05 19:03] VITALS: BP 136/49; PULSE 75; RESP 16; TEMP 37.3; O2SAT 95; BMI 27.2
--- NOTE | 2019-01-05 19:17 | EKG12_ITS ---
Test Reason : CONFUSION Blood Pressure : / mmHG Vent. Rate : 067 BPM Atrial Rate : 067 BPM P-R Int : 156 ms QRS Dur : 084 ms QT Int : 426 ms P-R-T Axes : 055 024 050 degrees QTc Int : 450 ms Normal sinus rhythm Normal ECG Confirmed by DENISE LUGO, RUTH ([id number]), commissioning editor JAMES KENT ([id number]) on 01/07/2019 1:37:19 PM Referred By: Santos Last Confirmed By:RUTH WALKER MD
--- NOTE | 2019-01-05 19:17 | CT_ITS ---
STUDY: CT BRAIN WITHOUT CONTRAST REASON FOR EXAM: Female, 73 years old. Altered mental status RADIATION DOSAGE (If Supplied By Facility): CTDIvol = ( 44.99 ) mGy, DLP = ( 812.98 ) mGycm TECHNIQUE: Transaxial CT imaging of the brain was performed without administration of intravenous contrast material. Individualized dose optimization techniques were used for this CT. COMPARISON: 08/25/2018 FINDINGS: There is no acute bleed or infarct. There are stable chronic ischemic and atrophic changes. The ventricles are normal in configuration. There is no hydrocephalus. The visualized paranasal sinuses are clear. The mastoid air cells are well aerated. There is no skull fracture. CT/Brain/Head without Contrast IMPRESSION: Stable chronic ischemic and atrophic changes. No acute intracranial abnormality. Electronically Signed: Dash Hicks, at 20:09 EDT Tel , Service support ,
--- NOTE | 2019-01-05 19:18 | ED.VISSUMM ---
- ER Visit Summary Date of Service: 01/05/19 Chief Complaint: Altered mental status History of Present Illness: The patient is a 73 F presenting with altered mental status. Per her daughter she has not been herself since waking her at 10 AM this morning. Daughter states she slept all throughout the day. She has not been eating or drinking. She has been staring off into space. She denies fever. Patient has a history of dementia but daughter states this is much worse than usual. Physical Examination: Vitals are stable. Patient is afebrile. Alert no acute distress. HEENT exam is unremarkable. Neck is supple. Lungs are clear and equal bilaterally. Heart is regular rate and rhythm. Abdomen is soft nontender nondistended. Extremities are unremarkable. Skin is warm and dry. Follows commands. Moves all extremities. Alert and oriented x0 Remainder of exam is unremarkable. Emergency Department Course and Treatment: EKG is sinus rate is 67 with no acute ischemic changes. Chest x-ray shows no acute process. CT head shows chronic changes, no acute process. CBC showed white count 13.2. Chemistries unremarkable other than glucose 111, BUN 24, creatinine 1.11. Troponin is negative. Urinalysis shows over 100 white blood cells, 50-100 red blood cells, 2+ bacteria. Urine culture was sent. She was given Rocephin IV. Discussed with the hospitalist for admission. Disposition: Admission Impression: Altered mental status, UTI This note was generated with [id number] dictation software. It may contain incorrect words, spelling, and punctuation that were not noted in review of the chart prior to signing ED Disposition - Plan for ED Patient: Referrals: Vernon Moore DO [Primary Care Provider] -
--- NOTE | 2019-01-05 19:24 | RAD_ITS ---
STUDY: X-RAY CHEST REASON FOR EXAM: Female, 73 years old. Shortness of breath TECHNIQUE: Frontal view of the chest COMPARISON: None. FINDINGS: The lungs are clear. There are no pleural effusions. There is no pneumothorax. The heart is normal in size. The visualized osseous structures are within normal limits. RAD/Chest 1 View (Portable) IMPRESSION: No acute thoracic pathology. Electronically Signed: Dash Hicks, at 19:35 EDT Tel , Service support ,
[2019-01-05 19:38] LABS: Absolute Neutrophil Count 8.6 X10^3/uL (2.0-7.7); Basophil# 0.04 X10^3/uL; Basophil% 0.3 % (0-1); Eosinophil# 0.02 X10^3/uL; Eosinophils% 0.2 % (0-5); Hematocrit 37.5 % (37-47); Hemoglobin 12.4 g/dL (12.0-15.0); Lymphocyte % 25.7 % (19-41); Mean Corp Hgb Conc 33.1 g/dL (32-36); Mean Corpuscular Hgb 32.5 pg (27.0-32.0); Mean Corpuscular Volume 98.4 fL (81-99); Mean Platelet Vol. 10.2 fl (6.2-12.0); Monocyte# 1.13 X10^3/uL; Monocyte% 8.6 % (0-10); NRBC Flagged by Analyzer 0 % (0-5); Neutrophil # 8.56 X10^3/uL (2.7-7.7); Neutrophil % 64.7 % (47-70); Platelet Count 217 K/mm3 (150-450); RBC Distribution Width CV 13.4 % (11.6-14.6); RBC Distribution Width SD 48.5 fl (35.1-43.9); Red Blood Count 3.81 M/mm3 (4.2-5.4); White Blood Count 13.2 K/mm3 (4.4-11.0)
[2019-01-05 20:19] LABS: Mucous, Urine 0 SEEN /hpf (<or=2+); Squamous Epithelial Cells - UA 0 SEEN /hpf (5-10)
[2019-01-05 20:23] LABS: Color, Urine Yellow (Yellow); Glucose, Dipstick Normal (Normal); Ketone-Dipstick Negative (Negative); Leukocyte Esterase-Dipstick 500 /ul (Negative); Nitrite-Dipstick Positive (Negative); Occult Blood-Urine 250 /ul (Negative); Protein-Dipstick 100 mg/dl (Negative); Specific Gravity, Urine 1.015 (1.002-1.030); Urine Bilirubin Dipstick Negative (Negative); Urine Clarity Cloudy (Clear); Urine Urobilinogen Normal (Normal)
[2019-01-05 20:29] VITALS: BP 137/99; PULSE 66; RESP 16; O2SAT 94
[2019-01-05 20:40] LABS: Anion Gap 9 (5-15); BUN 24 mg/dL (7-18); BUN/Creat Ratio 21.6 RATIO (10-20); Chloride 105 mmol/L (98-107); Creatinine, Serum 1.11 mg/dL (0.55-1.02); EST Glomerular Filtration Rate 51 mL/min (>60); Est Glom Filt Rate - Afr Amer 62 mL/min (>60); Estimated Creatinine Clearance 36.78 ml/min; Glucose 111 mg/dL (74-106); Potassium 4.3 mmol/L (3.5-5.1); Sodium Level 143 mmol/L (136-145)
[2019-01-05 21:00] VITALS: BP 140/97; PULSE 63; RESP 16; O2SAT 95
[2019-01-05 21:03] LABS: Red Blood Cells-Urine 50-100 SEEN /hpf (0-5); White Blood Cells >100 SEEN /hpf (0-5)
[2019-01-05 21:04] LABS: Bacteria 2+ /hpf (None Seen)
--- NOTE | 2019-01-05 21:21 | PCM.HP.STD ---
Problem List (1) Acute encephalopathy Status: Acute (2) E. coli UTI Status: Inactive (3) Cystitis Status: Acute History of Present Illness Date of Admission: 01/05/19 Chief Complaint: altered mental status The patient is a 73 year old F with a significant history of hypertension; dementia; CVA who presented to the emergency department with 1 day history of lethargy. At baseline patient has dementia as above. However patient has been noted to be more confused. She was noted to be staring into space. Also patient was noted not to be eating and drinking. Emergency department doctor reported that patient was alert and oriented x0 but was following commands. Family at bedside reported that patient was not interactive at home but she became transiently interactive at the emergency department but she is back to not being interactive Patient uses adult depends. Of note more than a month ago she was treated for UTI. Her urinalysis was abnormal at the emergency department. Past Medical History Past Medical History (Chronic Problems): Chronic Problems (Last Reviewed 01/05/19 @ 22:17 by Santos Last MD) Dementia (Chronic) Medical History: Medical History (Last Reviewed 01/05/19 @ 22:17 by Santos Last MD) Anxiety F41.9 CVA (cerebral vascular accident) I63.9 Dementia F03.90 Allergies No Known Allergies Allergy (Verified 08/25/18 15:18) Home Medications: Ambulatory Orders Medication Instructions Recorded Cyanocobalamin (Vitamin B-12) 2,500 mcg PO DAILY 08/25/18 [Vitamin B12] Mirtazapine 15 mg DAILY 08/25/18 Risperidone 0.25 mg BID PRN PRN 08/25/18 Tolterodine Tartrate [Tolterodine 2 mg PO DAILY 08/25/18 Tartrate ER] Amlodipine Besylate 2.5 mg PO DAILY #0 08/27/18 Surgical History: cholecystectomy Lives: Spouse/ Significant Other Smoking Status: Former smoker Alcohol: None - *Family History Maternal History Items: Heart Disease Paternal History Items: Cancer Review of Systems Unable to obtain accurate/complete ROS d/t: Because patient is obtunded. Information by family is in hpi VTE Information - Inpt Only VTE Present on Admission: No VTE Mechan Device Prophylaxis: None VTE Pharm Prophylaxis ordered?: Yes Patient Problems: Active and Suspected Problems (Last Reviewed 01/05/19 @ 22:17 by Santos Last MD) Acute encephalopathy (Acute) Cystitis (Acute) - Physical Exam General: - - Obtunded HEENT: Atraumatic, Normocephalic, - Neck: Supple, No Nuchal Rigidity, Trachea Midline Lungs: Diminished Cardiovascular: Regular rate, Murmur - Chronic, per family Abdomen: Bowel Sounds Present, Soft, Non Tender, - - No costovertebral angle tenderness Extremities: Capillary Refill Less than 3 Seconds, Edema - bilateral feet. Skin: No rashes, No breakdown Musculoskeletal: No Muscle Wasting Neurological: - - Obtunded; not following commands Psych/Mental Status: - - Obtunded Vital Signs Temp Pulse Resp BP Pulse Ox 99.1 F 66 16 137/99 H 94 01/05/19 19:03 01/05/19 20:29 01/05/19 20:29 01/05/19 20:29 01/05/19 20:29 Oxygen Delivery Method Room Air Weight: 69.8 kg Body Mass Index (BMI) 27.2 Laboratory Tests Past 24 Hrs 01/05/19 01/05/19 01/05/19 19:25 19:25 19:59 WBC 13.2 H RBC 3.81 L Hgb 12.4 Hct 37.5 MCV 98.4 MCH 32.5 H MCHC 33.1 RDW Std Deviation 48.5 H RDW Coeff of Itzel 13.4 Plt Count 217 MPV 10.2 Immature Gran % (Auto) 0.500 Neut % (Auto) 64.7 Lymph % (Auto) 25.7 [place] % (Auto) 8.6 Eos % (Auto) 0.2 Baso % (Auto) 0.3 Absolute Neuts (auto) 8.6 H Absolute Lymphs (auto) 3.40 Absolute Nucleated RBC 0.00 Nucleated RBC % 0 Sodium Cancelled 143 Potassium Cancelled 4.3 Chloride Cancelled 105 Carbon Dioxide Cancelled 29.0 Anion Gap Cancelled 9 BUN Cancelled 24 H Creatinine Cancelled 1.11 H Estim Creat Clear Calc Cancelled 36.78 Est GFR (MDRD) Af Amer Cancelled 62 Est GFR (MDRD) Non-Af Cancelled 51 L BUN/Creatinine Ratio Cancelled 21.6 H Glucose Cancelled 111 H Calcium Cancelled 9.0 Troponin I Cancelled < 0.015 Urine Color Urine Clarity Urine pH Ur Specific [place] Urine Protein Urine Glucose (UA) Urine Ketones Urine Occult Blood Urine Nitrite Urine Bilirubin Urine Urobilinogen Ur Leukocyte Esterase Urine RBC Urine WBC Ur Squamous Epith Cells Urine Bacteria Urine Mucus 01/05/19 20:15 WBC RBC Hgb Hct MCV MCH MCHC RDW Std Deviation RDW Coeff of Itzel Plt Count MPV Immature Gran % (Auto) Neut % (Auto) Lymph % (Auto) [place] % (Auto) Eos % (Auto) Baso % (Auto) Absolute Neuts (auto) Absolute Lymphs (auto) Absolute Nucleated RBC Nucleated RBC % Sodium Potassium Chloride Carbon Dioxide Anion Gap BUN Creatinine Estim Creat Clear Calc Est GFR (MDRD) Af Amer Est GFR (MDRD) Non-Af BUN/Creatinine Ratio Glucose Calcium Troponin I Urine Color Yellow Urine Clarity Cloudy Urine pH 6.0 Ur Specific [place] 1.015 Urine Protein 100 H Urine Glucose (UA) Normal Urine Ketones Negative Urine Occult Blood 250 H Urine Nitrite Positive H Urine Bilirubin Negative Urine Urobilinogen Normal Ur Leukocyte Esterase 500 H Urine RBC 50-100 SEEN Urine WBC >100 SEEN Ur Squamous Epith Cells 0 SEEN Urine Bacteria 2+ Urine Mucus 0 SEEN Assessment/Plan All Active Problems (Last Reviewed 01/05/19 @ 22:17 by Santos Last MD) Acute encephalopathy (Acute) Cystitis (Acute) Delirium (Acute) The patient is a 73 year old F with a significant history of hypertension; dementia; CVA who presented to the emergency department with altered mental status and found to have abnormal urinalysis the emergency department consistent for acute encephalopathy secondary to likely cystitis Acute encephalopathy likely secondary to acute cystitis Review of emergency department labs shows abnormal urinalysis Urine culture is pending; follow. CXR is unremarkable Brain CT shows no acute disease Discussed with emergency department doctor to get blood culture. Ceftriaxone was ordered at the emergency department; continued Patient look obtunded on examination. Will hold all p.o. medications at this time. Will get speech to evaluate for swallowing abilities. Of note patient is on home p.o. psychotropic drugs (Risperidone, Mirtazapine) that could contribute to her being obtunded. All p.o. medications on hold at this time. Placed on D5NSS to provide some calories and hydrate Trend CBC and BMP Hypertension On presentation her blood pressure was fairly stable in regard to age. Hold home amlodipine because patient is obtunded and is at risk for aspiration pneumonia. PRN hydralazine IV ordered. Trend blood pressures. Dementia On home Namenda. Hold at this time because patient is obtunded. Overactive bladder Hold tolterodine at this time n.p.o. status. DVT Prophylaxis Subcutaneous Lovenox. Code Visit Inpatient E&M: 13373 Init Hosp L3
--- NOTE | 2019-01-05 21:38 | ED.RN ---
AT 0 THIS NURSE WAS GETTING READY TO ADMINISTER THE ROCEPHIN IVPB WHEN SHILPA BURTON RN, INFORMED THIS NURSE THAT DR. PATE JUST ORDERED BLOOD CULTURES. NS FLUID AND ROCEPHIN WERE REMOVED FROM THE PT'S IV LINE TO LFA. WHEN THIS NURSE ATTEMPTED TO DRAW THE FIRST SET OF BLOOD CULTURES, DR. FRANCOIS WHO WAS STANDING NEXT TO THIS NURSE ASKED IF HE COULD DO AN EXAMINATION OF THE PT AND THE BLOOD CULTURES COULD WAIT UNTIL HE WAS DONE. THIS NURSE EXPLAINED THAT THE BLOOD CULTURES NEEDED TO BE OBTAINED SO THE ANTIBIOTIC COULD BE INITIATED. DR. FRANCOIS ASKED THIS NURSE TO LEAVE UNTIL HE WAS DONE WITH HIS EXAMINATION. THIS NURSE EXITED THE ROOM.
[2019-01-05] MEDS: Ceftriaxone 1 GM/50 ML BAG IV (21:50)
[2019-01-05 22:24] VITALS: BMI 24.7; BMI 24.8
--- NOTE | 2019-01-05 22:37 | NURSING ---
Daughter(Kasey) assisted with answering the admit Question.
[2019-01-05 22:41] VITALS: BP 154/61; PULSE 59; RESP 16; TEMP 36.6; O2SAT 97
[2019-01-05] MEDS: Dextrose 5%/0.9% NaCl 1,000 ML 75 ML IV (22:54)
[2019-01-06] VITALS (7 sets, daily range): BP systolic 132–157; BP diastolic 47–72; PULSE 52–72; RESP 14–20; TEMP 36.6–37; O2SAT 95–96; BMI 24.7
[2019-01-06 06:04] LABS: Absolute Lymphocyte Count 3.47 X10^3/uL (0.83-4.51); Absolute Neutrophil Count 5.2 X10^3/uL (2.0-7.7); Basophil# 0.07 X10^3/uL; Basophil% 0.7 % (0-1); Eosinophil# 0.19 X10^3/uL; Hematocrit 37.1 % (37-47); Hemoglobin 11.9 g/dL (12.0-15.0); Lymphocyte # 3.47 X10^3/ul (4.0); Lymphocyte % 35.7 % (19-41); Mean Corp Hgb Conc 32.1 g/dL (32-36); Mean Corpuscular Hgb 31.7 pg (27.0-32.0); Mean Corpuscular Volume 98.9 fL (81-99); Mean Platelet Vol. 10.2 fl (6.2-12.0); Monocyte# 0.78 X10^3/uL; NRBC Flagged by Analyzer 0 % (0-5); Neutrophil # 5.17 X10^3/uL (2.7-7.7); Neutrophil % 53.3 % (47-70); Platelet Count 201 K/mm3 (150-450); RBC Distribution Width CV 13.3 % (11.6-14.6); RBC Distribution Width SD 48.5 fl (35.1-43.9); Red Blood Count 3.75 M/mm3 (4.2-5.4); White Blood Count 9.7 K/mm3 (4.4-11.0)
[2019-01-06 06:14] LABS: BUN 23 mg/dL (7-18); Creatinine, Serum 0.95 mg/dL (0.55-1.02); Estimated Creatinine Clearance 44.86 ml/min; Glucose 95 mg/dL (74-106)
[2019-01-06 06:15] LABS: Anion Gap 8 (5-15); BUN/Creat Ratio 24.2 RATIO (10-20); Calcium,Total 8.6 mg/dL (8.5-10.1); Chloride 109 mmol/L (98-107); EST Glomerular Filtration Rate 61 mL/min (>60); Est Glom Filt Rate - Afr Amer 74 mL/min (>60); Potassium 4.1 mmol/L (3.5-5.1); Sodium Level 142 mmol/L (136-145)
--- NOTE | 2019-01-06 07:34 | PN_ITS ---
Patient Problems: Active and Suspected Problems (Last Reviewed 01/05/19 @ 22:17 by Santos Last MD) Acute encephalopathy (Acute) Cystitis (Acute) Subjective: Patient was seen and examined. is at the bedside. He states patient is about the same. He states her daughter says she improved. Patient is not oriented to person, place or time. She opens eyes to commands but does not respond to questions. She just giggled at my questions. No other acute events overnight. Objective: Physical Exam General: Patient looks well, not oriented to person, place or time HEENT: Atraumatic, Normocephalic Neck: Supple, No Nuchal Rigidity, Trachea Midline Lungs: CTA Cardiovascular: Regular rate, Murmur Abdomen: Bowel Sounds Present, Soft, Non Tender, no palpable organs Extremities: No edema bilaterally Skin: No rashes, No breakdown Musculoskeletal: No Muscle Wasting Neurological: Grossly intact, not oriented to person, place or time Vitals/I&O's: Vital Signs Temp Pulse Resp BP Pulse Ox 98.6 F 70 18 155/72 H 96 01/06/19 06:40 01/06/19 06:40 01/06/19 06:40 01/06/19 06:40 01/06/19 06:40 Oxygen Delivery Method Room Air Weight: 65.5 kg Body Mass Index (BMI) 24.7 Intake and Output for Last 24 Hours 01/04/19 01/05/19 01/06/19 23:59 23:59 23:59 Intake Total 575 / 575 Balance 575 / 575 Laboratory Results 01/05/19 19:25: WBC 13.2 H, RBC 3.81 L, Hgb 12.4, Hct 37.5, MCV 98.4, MCH 32.5 H , MCHC 33.1, RDW Std Deviation 48.5 H, RDW Coeff of Itzel 13.4, Plt Count 217, MPV 10.2, Immature Gran % (Auto) 0.500, Neut % (Auto) 64.7, Lymph % (Auto) 25.7, [place] % (Auto) 8.6, Eos % (Auto) 0.2, Baso % (Auto) 0.3, Absolute Neuts (auto) 8.6 H, Absolute Lymphs (auto) 3.40, Absolute Nucleated RBC 0.00, Nucleated RBC % 0 01/05/19 19:25: Sodium Cancelled, Potassium Cancelled, Chloride Cancelled, Carbon Dioxide Cancelled, Anion Gap Cancelled, BUN Cancelled, Creatinine Cancelled, Estim Creat Clear Calc Cancelled, Est GFR (MDRD) Af Amer Cancelled, Est GFR (MDRD) Non-Af Cancelled, BUN/Creatinine Ratio Cancelled, Glucose Cancelled, Calcium Cancelled, Troponin I Cancelled 01/05/19 19:59: Sodium 143, Potassium 4.3, Chloride 105, Carbon Dioxide 29.0, Anion Gap 9, BUN 24 H, Creatinine 1.11 H, Estim Creat Clear Calc 36.78, Est GFR (MDRD) Af Amer 62, Est GFR (MDRD) Non-Af 51 L, BUN/Creatinine Ratio 21.6 H, Glucose 111 H, Calcium 9.0, Troponin I < 0.015 01/05/19 20:15: Urine Color Yellow, Urine Clarity Cloudy, Urine pH 6.0, Ur Specific [place] 1.015, Urine Protein 100 H, Urine Glucose (UA) Normal, Urine Ketones Negative, Urine Occult Blood 250 H, Urine Nitrite Positive H, Urine Bilirubin Negative, Urine Urobilinogen Normal, Ur Leukocyte Esterase 500 H, Urine RBC 50-100 SEEN, Urine WBC >100 SEEN, Ur Squamous Epith Cells 0 SEEN, Urine Bacteria 2+, Urine Mucus 0 SEEN 01/06/19 05:30: WBC 9.7, RBC 3.75 L, Hgb 11.9 L, Hct 37.1, MCV 98.9, MCH 31.7, MCHC 32.1, RDW Std Deviation 48.5 H, RDW Coeff of Itzel 13.3, Plt Count 201, MPV 10.2, Immature Gran % (Auto) 0.300, Neut % (Auto) 53.3, Lymph % (Auto) 35.7, [place] % (Auto) 8.0, Eos % (Auto) 2.0, Baso % (Auto) 0.7, Absolute Neuts (auto) 5.2, Absolute Lymphs (auto) 3.47, Absolute Nucleated RBC 0.00, Nucleated RBC % 0 01/06/19 05:30: Sodium 142, Potassium 4.1, Chloride 109 H, Carbon Dioxide 25.0, Anion Gap 8, BUN 23 H, Creatinine 0.95, Estim Creat Clear Calc 44.86, Est GFR (MDRD) Af Amer 74, Est GFR (MDRD) Non-Af 61, BUN/Creatinine Ratio 24.2 H, Glucose 95, Calcium 8.6 Current Medications Dextrose (D50w Syringe) 0 gm IV X1 PRN; Protocol PRN Reason: Hypoglycemia Enoxaparin Sodium (Lovenox) 40 mg SC DAILY@1000 RYAN Glucagon () 1 mg IM .X1 PRN PRN Reason: Hypoglycemia Hydralazine HCl (Apresoline Iv) 5 mg IV Q4H PRN PRN PRN Reason: SBP > 160 Ceftriaxone Sodium (Rocephin) 1 gm in 50 mls @ 100 mls/hr IV Q24H RYAN Dextrose/Sodium Chloride (Dextrose 5%/0.9% Nacl) 1,000 mls @ 75 mls/hr IV .[id number] RYAN Stop: 01/06/19 11:37 Last Admin: 01/05/19 22:54 Dose: 75 mls/hr Documented by: Sodium Chloride () 250 mls @ 15 mls/hr IV .[id number] PRN PRN Reason: SALINE FLUSH Sodium Chloride () 10 - 40 ml IV UD PRN PRN Reason: SALINE FLUSH Medical Necessity - Tobacco Use Smoking Status: Former smoker Assessment/Plan All Active Problems (Last Reviewed 01/05/19 @ 22:17 by Santos Last MD) Acute encephalopathy (Acute) Cystitis (Acute) Delirium (Acute) 73-year-old with past medical history of dementia, hypertension, resident at home who comes in with altered mental status and is being managed as acute cystitis. 1. Acute metabolic encephalopathy secondary to acute UTI, patient with baseline dementia, dependent for all her IADLs and most of her ADLs Vitals are stable, blood and urine cultures are pending, Leucocytosis is improved, previous urine cultures grew E. coli, pansensitive, on IV ceftriaxone, will continue same Continue to hold risperidone and Mirtrazapine 2. Hypertension, slightly uncontrolled, will resume amlodipine when patient is able to swallow pills, continue on PRN hydralazine 3. Overactive bladder, tolterodine on hold, will continue to hold on account of delirium 4. DVT PPx- Lovenox SC Multi Select Codes - Visit Charges Visit Charges: 84579 Subs Hosp L2
--- NOTE | 2019-01-06 11:58 | CASEMGMT ---
RN CM Assessment Introduced role of RN CM to patient, patient Rubio and Son at bedside. Patient H/o Dementia, Information obtained from at bedside. Son at bedside cannot hear per the Art.? Patient is alert and laying in hospital bed. ?Care providers, pharmacy, and demographics verified. Presentation: AMS more than Usual. H/o Dementia. Admit Dx: Acute Encephalopathy Re-Admit: No. OBS 08/25/18 for Lt sided weakness Barriers/Issues: None. Per they have 6 children, 5 children live close and 1 child lives in [place]. [facility] has a good support system, Grnddtr and himself assist patient with her needs. States only concern and aware d/t her disease/progression is patient's eating- Meals prepped by , patient feeds herself, however she tries to poke/get food off plate and is not near the food and food ends up falling off plate. PCP: Vernon Moore Specialists: None Preferred Pharmacy: [facility] Insurance: Fredo CALI [facility] Rx Benefit:?Yes ?LNOK: Dtr Kasey [place]cal[place], Harjit Merritt LW/HPOA: Yes both, not on file at [facility], HPOA- Harjit Merritt, [facility] alternative agent- Son Leoncio. Living Arrangements:?Lives with Rubio and Son, Lives [address] level of home. 4 steps to enter home with hand rails. ADL?s: Patient requires standby assist by grnddtr to ambulate to perform ADLs but then sits in her recliner chair. Requires assistance with all ADLs Transportation: [facility] and [facility] upon DC DME: None HHC: None SNF: Past- [facility] and [facility] Goal: Home, does not think will have any needs upon DC, Denies questions/concerns/issues at this time. Aware CM remains available for any emerging needs. DC PLAN: Home with no anticipated needs identified at this time. TOMMY Randall
[2019-01-06] MEDS: Enoxaparin 40 MG/0.4 ML Syringe SC (12:02)
[2019-01-06] MEDS: Escitalopram Oxalate 10 MG Tablet PO (19:01)
[2019-01-06] MEDS: Ceftriaxone 1 GM/50 ML BAG IV (22:11)
[2019-01-06] MEDS: 0.9% NaCl Peripheral Flush Adult/Peds IV (22:11)
[2019-01-06] MEDS: 0.9% NaCl IVPB Med Flush (250 mL) 15 ML IV (22:17)
[2019-01-07 00:23] VITALS: BMI 24.7
[2019-01-07 00:31] VITALS: BMI 24.7
[2019-01-07 01:55] VITALS: BP 146/52; PULSE 64; RESP 22; TEMP 37.7; O2SAT 94
[2019-01-07 06:06] VITALS: TEMP 37.1
[2019-01-07 08:41] VITALS: BP 144/47; PULSE 59; RESP 18; TEMP 36.8; O2SAT 93
[2019-01-07] MEDS: amLODIPine 2.5 MG Tablet PO (08:46)
[2019-01-07] MEDS: Enoxaparin 40 MG/0.4 ML Syringe SC (08:47)
[2019-01-07] MEDS: Escitalopram Oxalate 10 MG Tablet PO (08:47)
[2019-01-07 11:26] VITALS: BMI 24.7
--- NOTE | 2019-01-07 11:54 | CASEMGMT ---
TINA DEL CID NOTE: To room to talk with pt's daughter, Senait. Introduced self and role of TINA DEL CID. Senait states she does not think her father will be in see pt today. She also states that 's phone is not working and he is not able to receive phone calls but that he can make calls out. Long discussion with Senait re: pt and current living situation. Senait states that she feels that pt is back to her baseline re: level of confusion/awareness and level of functioning. Senait states pt's granddaughter, Ellyn, has been providing care daily for pt in the mornings and the evenings, but that she is and due to have her baby on January 16 and will no longer be able to help take care of pt. Senait states that the family is currently looking for someone to come into the home to help to care for pt, as pt's is not able to provide as much care for pt as she needs such as bathing and dressing. Provided Senait with a list of local private duty agency's that provide aide services. Senait also given resources to the [employer] and contact information and states she will pass this information along to her father. Discussed options of SNF vs HHC. She stated her father/pt's may be agreeable to a SNF but she is not sure. Olive BLACKWOOD, notified and states will provide options of facilities. Senait states is her father is not agreeable to SNF, that he may be agreeable to HHC. Tran SALAZAR RN, CM
--- NOTE | 2019-01-07 13:14 | PCM.PN.HOSP ---
Patient Problems: Active and Suspected Problems (Last Reviewed 01/05/19 @ 22:17 by Santos Last MD) Acute encephalopathy (Acute) Cystitis (Acute) Subjective: Patient seen and examined. She remains confused. Not alert oriented to self, place or time. Unclear if this is her usual baseline. Patient however seems a little bit more awake and responds to commands. Not very verbal. No acute events overnight Objective: Physical Exam General: Patient looks well, not oriented to person, place or time HEENT: Atraumatic, Normocephalic Neck: Supple, No Nuchal Rigidity, Trachea Midline Lungs: CTA Cardiovascular: Regular rate, Murmur Abdomen: Bowel Sounds Present, Soft, Non Tender, no palpable organs Extremities: No edema bilaterally Skin: No rashes, No breakdown Musculoskeletal: No Muscle Wasting Neurological: Grossly intact, not oriented to person, place or time Vitals/I&O's: Vital Signs Temp Pulse Resp BP Pulse Ox 98.2 F 59 L 18 144/47 H 93 01/07/19 08:41 01/07/19 08:41 01/07/19 08:41 01/07/19 08:41 01/07/19 08:41 Oxygen Delivery Method Room Air Weight: 65.5 kg Body Mass Index (BMI) 24.7 Intake and Output for Last 24 Hours 01/05/19 01/06/19 01/07/19 23:59 23:59 23:59 Intake Total 951 / 951 150 / 150 Balance 951 / 951 150 / 150 Microbiology Past 72 Hours 01/05/19 20:15 Urine, Catheterized Urine Culture - Final Presumptive E. coli Current Medications Amlodipine Besylate (Norvasc) 2.5 mg PO DAILY [facility] Last Admin: 01/07/19 08:46 Dose: 2.5 mg Documented by: Dextrose (D50w Syringe) 0 gm IV X1 PRN; Protocol PRN Reason: Hypoglycemia Enoxaparin Sodium (Lovenox) 40 mg SC DAILY@1000 [facility] Last Admin: 01/07/19 08:47 Dose: 40 mg Documented by: Escitalopram Oxalate (Lexapro) 10 mg PO DAILY [facility] Last Admin: 01/07/19 08:47 Dose: 10 mg Documented by: Glucagon () 1 mg IM .X1 PRN PRN Reason: Hypoglycemia Hydralazine HCl (Apresoline Iv) 5 mg IV Q4H PRN PRN PRN Reason: SBP > 160 Ceftriaxone Sodium (Rocephin) 1 gm in 50 mls @ 100 mls/hr IV Q24H RYAN Last Admin: 01/06/19 22:11 Dose: 100 mls/hr Documented by: Sodium Chloride () 250 mls @ 15 mls/hr IV .[id number] PRN PRN Reason: SALINE FLUSH Last Admin: 01/06/19 22:17 Dose: 15 mls/hr Documented by: Sodium Chloride () 10 - 40 ml IV UD PRN PRN Reason: SALINE FLUSH Last Admin: 01/06/19 22:11 Dose: 10 ml Documented by: Medical Necessity - Tobacco Use Smoking Status: Unknown if ever smoked Assessment/Plan All Active Problems (Last Reviewed 01/05/19 @ 22:17 by Santos Last MD) Acute encephalopathy (Acute) Cystitis (Acute) Delirium (Acute) 73-year-old with past medical history of dementia, hypertension, resident at home who comes in with altered mental status and is being managed as acute cystitis. 1. Acute metabolic encephalopathy secondary to acute E. Coli UTI, patient with baseline dementia, dependent for all her IADLs and most of her ADLs, appears to be about the same. Blood cultures are pending, urine cultures grew E. coli, pansensitive, Leucocytosis is resolved. Plan: Continue to monitor patient's, resume mirtazapine on account of poor sleep, 2. Acute E. coli UTI, pansensitive, on IV ceftriaxone day 3, will switch to cefdinir for 4 more days making a total of 1 week treatment 3. Hypertension, slightly uncontrolled, will resume amlodipine when patient is able to swallow pills, continue on PRN hydralazine 4. Overactive bladder, tolterodine on hold, will continue to hold on account of delirium 5. DVT PPx- Lovenox SC 6. Debility related to the above, patient has aides at home including grandchildren. Family request discharge to home. 7. Disposition: DC Home with aides in am if stable Code Visit Inpatient E&M: 93485 Subs Hosp L2
--- NOTE | 2019-01-07 14:09 | CASEMGMT ---
Addendum entered by Wanda Major 01/07/19 15:12: JAISON updated by RN that pt's will be calling this worker tomorrow morning as pt's daughter is unable to get to pt's before 5:00pm today. Original Note: Social Work Note SW updated by TINA Stone that pt's daughter Dominick is currently at [facility] and is considering SNF for pt. Dominick states pt's is HCPOA however and he is not going to be agreeable to SNF. TINA Stone asked this worker about TCU and SW informed pt that this worker spoke with Kami yesterday who stated there are currently no beds on TCU. TINA Stone states that pt's is not coming to [facility] today and that his phone is unable to receive calls but he can place calls out. SW met with pt's daughter Dominick. SW introduced self and role at [facility]. Pt has dementia and is unable to answer questions appropriately. JAISON approached topic of SNF with Dominick and it appears Dominick is agreeable to SNF but again states that pt's is HCPOA and he won't be agreeable to SNF. SW informed Dominick that at this time, TCU doesn't have any beds available regardless. JAISON educated Dominick on Palliative Care as well and provided brochure to Dominick. JAISON provided Dominick with business card and asked Dominick to ask pt's to give this worker a call back. JAISON educated Dominick on additional discharge options including HHC. Dominick states she will relay this information to pt's and also have pt's give this worker a call. Plan: TBD. It appears pt's who is HCPOA won't be agreeable to SNF for pt. SW waiting for pt's to call this worker back. Wanda Major NONPROFIT FUNDRAISER, LEGISLATIVE DIRECTOR
[2019-01-07 14:30] VITALS: BP 139/51; PULSE 67; RESP 16; TEMP 38.1; O2SAT 94
[2019-01-07 19:00] VITALS: TEMP 37.2
[2019-01-07 20:25] VITALS: BP 127/49; PULSE 68; RESP 20; TEMP 36.9; O2SAT 93
[2019-01-07] MEDS: Cefdinir 300 MG Capsule PO (22:19)
[2019-01-07] MEDS: Mirtazapine 15 MG Tablet PO (22:19)
[2019-01-08 00:39] VITALS: BMI 24.7
[2019-01-08 00:40] VITALS: BMI 24.7
[2019-01-08 02:20] VITALS: BP 123/41; PULSE 55; RESP 20; TEMP 37.1; O2SAT 98
[2019-01-08] MEDS: amLODIPine 2.5 MG Tablet PO (09:54)
[2019-01-08] MEDS: Cefdinir 300 MG Capsule PO ×2 (09:54→22:05)
[2019-01-08] MEDS: Enoxaparin 40 MG/0.4 ML Syringe SC (09:55)
[2019-01-08] MEDS: Menthol/Lanolin/Calamine/Znox 113 GM Tube 1 APPLIC TOPICAL ×3 (09:55→17:37)
[2019-01-08 10:05] VITALS: BP 113/54; PULSE 57; RESP 16; TEMP 36.4; O2SAT 96
[2019-01-08 10:19] VITALS: BMI 24.7
--- NOTE | 2019-01-08 11:16 | CASEMGMT ---
Social Work Note SW received transferred voicemail from Bayron Neri and it was pt's Art stating he was informed by his daughter to give this worker a call but instead of calling this worker's direct number he left a message fro Quality Management Department. Art provided number [phone] but states that he is unable to receive calls but will try again to call this worker. SW to continue to follow. Wanda Major DELIVERY OF SHOPPING NEWS, CASTING AND CURING OPERATOR
--- NOTE | 2019-01-08 13:00 | CASEMGMT ---
Social Work Note SW still hasn't heard from pt's Art who is HCPOA. SW placed a call to pt's daughter Sujata and updated her that this worker needs to talk to pt's soon to discuss discharge plans as pt is medically cleared for discharge. Sujata states she will be going to her fathers house shortly and have Art call this worker. SW placed a call to Kami in TCU and per Kami she doesn't have any beds available at this time and there is a three person wait list. SW received call from pt's Art. SW discussed discharge plans with Art including SNF and HHC. Art states that he and pt have been to SNFs before and he feels SNF don't do anything to help pt. SW discussed that right now physician and PT/OT are recommending SNF for pt. SW discussed area SNF in network with pt's insurance. Pt's daughter Sujata is in the background during conversation and asked if she and Art can discuss SNF further and then give this worker a call back. SW informed Sujata that she may do this but that this worker needs to know soon as pt is ready for discharge and pre-cert is needed. SW received all from Art again and states he is agreeable to trying [facility] for pt. SW explained referral process and again that pt will need pre-cert. SW informed Art that since this worker is unable to call him due to his phones this worker will call Sujata with any updates and she can relay the message to Art. Art states understanding. JAISON faxed referral to Anjali at [facility] and placed a call to Anjali and updated her on referral. SW waiting for call back. Plan: [facility] pending acceptance and pre-cert Wanda Major GRAIN DRIER, ARCHITECTURAL TECHNICIAN
--- NOTE | 2019-01-08 13:46 | PN_ITS ---
Patient Problems: Active and Suspected Problems (Last Reviewed 01/05/19 @ 22:17 by Santos Last MD) Acute encephalopathy (Acute) Cystitis (Acute) Subjective: Patient was seen and examined. She remains confused. No acute events overnight. Objective: Physical Exam: General: Patient looks well, not oriented to person, place or time HEENT: Atraumatic, Normocephalic Neck: Supple, No Nuchal Rigidity, Trachea Midline Lungs: CTA Cardiovascular: Regular rate, Murmur Abdomen: Bowel Sounds Present, Soft, Non Tender, no palpable organs Extremities: No edema bilaterally Skin: No rashes, No breakdown Musculoskeletal: No Muscle Wasting Neurological: Grossly intact, not oriented to person, place or time Vitals/I&O's: Vital Signs Temp Pulse Resp BP Pulse Ox 97.6 F L 57 L 16 113/54 L 96 01/08/19 10:05 01/08/19 10:05 01/08/19 10:05 01/08/19 10:05 01/08/19 10:05 Oxygen Delivery Method Room Air Weight: 65.5 kg Body Mass Index (BMI) 24.7 Intake and Output for Last 24 Hours 01/06/19 01/07/19 01/08/19 23:59 23:59 23:59 Intake Total 951 / 951 450 / 450 150 / 150 Balance 951 / 951 450 / 450 150 / 150 Microbiology Past 72 Hours 01/05/19 21:45 Blood Culture (Wb) - Anticubital Right Blood Culture - Preliminary No growth in 48 hours. 01/05/19 21:50 Blood Culture (Wb) - Right Wrist Blood Culture - Preliminary No growth in 48 hours. 01/05/19 20:15 Urine, Catheterized Urine Culture - Final Presumptive E. coli Current Medications Amlodipine Besylate (Norvasc) 2.5 mg PO DAILY [facility] Last Admin: 01/08/19 09:54 Dose: 2.5 mg Documented by: Calamine/Phenol (Calmoseptine Ointment) 1 applic TOPICAL 4X/DAY RYAN; Protocol Last Admin: 01/08/19 09:55 Dose: 1 applicatio Documented by: Cefdinir (Omnicef [Equiv]) 300 mg PO Q12 RYAN Stop: 01/11/19 10:01 Last Admin: 01/08/19 09:54 Dose: 300 mg Documented by: Dextrose (D50w Syringe) 0 gm IV X1 PRN; Protocol PRN Reason: Hypoglycemia Enoxaparin Sodium (Lovenox) 40 mg SC DAILY@1000 [facility] Last Admin: 01/08/19 09:55 Dose: 40 mg Documented by: Escitalopram Oxalate (Lexapro) 10 mg PO DAILY [facility] Last Admin: 01/08/19 09:56 Dose: Not Given Documented by: Glucagon () 1 mg IM .X1 PRN PRN Reason: Hypoglycemia Hydralazine HCl (Apresoline Iv) 5 mg IV Q4H PRN PRN PRN Reason: SBP > 160 Sodium Chloride () 250 mls @ 15 mls/hr IV .[id number] PRN PRN Reason: SALINE FLUSH Last Admin: 01/06/19 22:17 Dose: 15 mls/hr Documented by: Mirtazapine (Remeron) 15 mg PO QHS [facility] Last Admin: 01/07/19 22:19 Dose: 15 mg Documented by: Sodium Chloride () 10 - 40 ml IV UD PRN PRN Reason: SALINE FLUSH Last Admin: 01/06/19 22:11 Dose: 10 ml Documented by: Medical Necessity - Tobacco Use Smoking Status: Unknown if ever smoked Assessment/Plan All Active Problems (Last Reviewed 01/05/19 @ 22:17 by Santos Last MD) Acute encephalopathy (Acute) Cystitis (Acute) Delirium (Acute) 73-year-old with past medical history of dementia, hypertension, resident at home who comes in with altered mental status and is being managed as acute cystitis. 1. Acute metabolic encephalopathy secondary to acute E. Coli UTI, patient with baseline dementia, dependent for all her IADLs and most of her ADLs, appears to be about the same. Blood cultures are pending, urine cultures grew E. coli, pansensitive, Leucocytosis is resolved. Plan: Continue to monitor patient's, resume mirtazapine on account of poor sleep, 2. Acute E. coli UTI, pansensitive, on cefdinir for total of 1 week. 3. Hypertension, controlled, on amlodipine, will continue to monitor. 4. Overactive bladder, tolterodine on hold, will continue to hold on account of delirium 5. DVT PPx- Lovenox SC 6. Debility related to the above, patient has aides at home including grandchildren. Family request discharge to home. 7. Disposition: DC Home with aides vs SNF Code Visit Inpatient E&M: 23870 Subs Hosp L2
--- NOTE | 2019-01-08 15:03 | CASEMGMT ---
Social Work Note SW received call from Anjali at [facility] stating she is able to accept pt and will submit for pre-cert. Plan: [facility] pending pre-cert Wanda Major COMMODITY SUPERVISOR, EMERGENCY DEPARTMENT DIRECTOR
[2019-01-08 15:04] VITALS: BP 125/40; PULSE 53; RESP 16; TEMP 36.6; O2SAT 95
[2019-01-08 19:42] VITALS: BP 144/34; PULSE 59; RESP 16; TEMP 37.1; O2SAT 93
[2019-01-08] MEDS: Mirtazapine 15 MG Tablet PO (22:06)
[2019-01-08 22:50] VITALS: BMI 24.7
[2019-01-09 01:35] VITALS: BP 133/31; PULSE 49; RESP 16; TEMP 36.4; O2SAT 95
[2019-01-09 07:30] VITALS: BP 111/52; PULSE 51; RESP 16; TEMP 36.6; O2SAT 97
--- NOTE | 2019-01-09 08:52 | PCM.PN.HOSP ---
Patient Problems: Active and Suspected Problems (Last Reviewed 01/05/19 @ 22:17 by Santos Last MD) Acute encephalopathy (Acute) Cystitis (Acute) Subjective: Patient was seen and examined. She remains the same. Non-communicative. Waiting on dc to snf. Objective: Physical Exam: General: Patient looks well, not oriented to person, place or time HEENT: Atraumatic, Normocephalic Neck: Supple, No Nuchal Rigidity, Trachea Midline Lungs: CTA Cardiovascular: Regular rate, Murmur Abdomen: Bowel Sounds Present, Soft, Non Tender, no palpable organs Extremities: No edema bilaterally Skin: No rashes, No breakdown Musculoskeletal: No Muscle Wasting Neurological: Grossly intact, not oriented to person, place or time Vitals/I&O's: Vital Signs Temp Pulse Resp BP Pulse Ox 97.5 F L 49 L 16 133/31 H 95 01/09/19 01:35 01/09/19 01:35 01/09/19 01:35 01/09/19 01:35 01/09/19 01:35 Oxygen Delivery Method Room Air Weight: 65.5 kg Body Mass Index (BMI) 24.7 Intake and Output for Last 24 Hours 01/07/19 01/08/19 01/09/19 23:59 23:59 23:59 Intake Total 450 / 450 300 / 300 Balance 450 / 450 300 / 300 Microbiology Past 72 Hours 01/05/19 21:45 Blood Culture (Wb) - Anticubital Right Blood Culture - Preliminary No growth in 48 hours. 01/05/19 21:50 Blood Culture (Wb) - Right Wrist Blood Culture - Preliminary No growth in 48 hours. 01/05/19 20:15 Urine, Catheterized Urine Culture - Final Presumptive E. coli Current Medications Amlodipine Besylate (Norvasc) 2.5 mg PO DAILY [facility] Last Admin: 01/08/19 09:54 Dose: 2.5 mg Documented by: Calamine/Phenol (Calmoseptine Ointment) 1 applic TOPICAL 4X/DAY RYAN; Protocol Last Admin: 01/08/19 22:04 Dose: Not Given Documented by: Cefdinir (Omnicef [Equiv]) 300 mg PO Q12 RYAN Stop: 01/11/19 10:01 Last Admin: 01/08/19 22:05 Dose: 300 mg Documented by: Dextrose (D50w Syringe) 0 gm IV X1 PRN; Protocol PRN Reason: Hypoglycemia Enoxaparin Sodium (Lovenox) 40 mg SC DAILY@1000 [facility] Last Admin: 01/08/19 09:55 Dose: 40 mg Documented by: Escitalopram Oxalate (Lexapro) 10 mg PO DAILY [facility] Last Admin: 01/08/19 09:56 Dose: Not Given Documented by: Glucagon () 1 mg IM .X1 PRN PRN Reason: Hypoglycemia Hydralazine HCl (Apresoline Iv) 5 mg IV Q4H PRN PRN PRN Reason: SBP > 160 Sodium Chloride () 250 mls @ 15 mls/hr IV .[id number] PRN PRN Reason: SALINE FLUSH Last Admin: 01/06/19 22:17 Dose: 15 mls/hr Documented by: Mirtazapine (Remeron) 15 mg PO QHS [facility] Last Admin: 01/08/19 22:06 Dose: 15 mg Documented by: Sodium Chloride () 10 - 40 ml IV UD PRN PRN Reason: SALINE FLUSH Last Admin: 01/06/19 22:11 Dose: 10 ml Documented by: Medical Necessity - Tobacco Use Smoking Status: Unknown if ever smoked Assessment/Plan All Active Problems (Last Reviewed 01/05/19 @ 22:17 by Santos Last MD) Acute encephalopathy (Acute) Cystitis (Acute) Delirium (Acute) 73-year-old with past medical history of dementia, hypertension, resident at home who comes in with altered mental status and is being managed as acute cystitis. 1. Acute metabolic encephalopathy secondary to acute E. Coli UTI, h/o baseline dementia, dependent for all her IADLs and most of her ADLs, appears to be about the same. Patient is at her baseline according to family. 2. Acute E. coli UTI, pansensitive, on cefdinir for total of 1 week. 3. Hypertension, controlled, on amlodipine, will continue to monitor. 4. Overactive bladder, tolterodine on hold, will continue to hold on account of delirium 5. DVT PPx- Lovenox SC 6. Debility related to the above 7. Disposition: DC to SNF when bed is available Code Visit Inpatient E&M: 49469 Subs Hosp L2
--- NOTE | 2019-01-09 09:54 | CASEMGMT ---
Social Work Note SW placed a call to Anjali and left her a message that pt is ready for discharge once pre-cert is obtained. Plan: [facility] pending pre-cert Wanda Major CHAIR MAKER, TRANSMISSION TESTER
[2019-01-09 10:22] VITALS: BMI 24.7
[2019-01-09] MEDS: Enoxaparin 40 MG/0.4 ML Syringe SC (10:30)
[2019-01-09] MEDS: Menthol/Lanolin/Calamine/Znox 113 GM Tube 1 APPLIC TOPICAL ×2 (10:31→16:09)
[2019-01-09] MEDS: Cefdinir 300 MG Capsule PO (10:37)
--- NOTE | 2019-01-09 13:49 | CASEMGMT ---
Social Work Note SW faxed updated clinicals to [facility]. Plan: [facility] pending pre-cert Wanda Major PTA, ELECTRIC LOCOMOTIVE FIRER/FIREMAN
--- NOTE | 2019-01-09 14:35 | TREXTCAR_ITS ---
- Diet 01/06/19 12:25 Diet: Regular Diet Food consistency:: Mechanical Soft/Ground Liquid Consistency:: Regular/Thin Is pt able to select menu?: No Diet Comments: Supervisie w/ total feed PRN; liquids w/straw; meds w/purees. tray at desk - Routine Orders/Code Status Routine Lab Work: CBC - within 3 days, BMP - within 3 days - Therapies Weight Bearing: Weight bearing as tolerated Physical Therapy: Eval and Treat Occupational Therapy: Eval and Treat - Allergies/Procedures Done in Hospital Allergies/Adverse Reactions: Allergies No Known Allergies Allergy (Verified 08/25/18 15:18) Procedures: None - Type of Care/Length of Stay Estimated LOS: Convalescent Care Less Than 30 days Type of Care Needed: Skilled Rehab Potential: Fair Prognosis: Fair - Additional Orders/Day of Discharge Day of Discharge: 01/09/19 - Dietary and Speech Recommendations Dietitian Recommendations/Changes: Continue regular diet, consistency per PARTICIPANT ADMINISTRATOR. - Follow Up Care Primary Care Physician: Vernon Moore DO [Primary Care Provider] - Please follow up with your Primary Care Physician in: within 1-2 weeks
--- NOTE | 2019-01-09 14:37 | PCM.DC.SUM ---
Discharge Date and Diagnosis - Problem List Patient Problems: Active and Suspected Problems (Last Reviewed 01/05/19 @ 22:17 by Santos Last MD) Acute encephalopathy (Acute) Cystitis (Acute) Date of Admission: 01/05/19 Date of Discharge: 01/09/19 - Primary Discharge Diagnosis Active and Suspected Problems (Last Reviewed 01/05/19 @ 22:17 by Santos Last MD) Acute encephalopathy (Acute) Acute E. Coli UTI - Secondary Discharge Diagnosis Chronic Problems (Last Reviewed 01/05/19 @ 22:17 by Santos Last MD) Dementia (Chronic) Hospital Course and Treatment Imaging Results: Clinical Impression(s) from Imaging Studies Brain CT 01/05/19 19:17 IMPRESSION: Stable chronic ischemic and atrophic changes. No acute intracranial abnormality. Electronically Signed: Dash Kurt, at 20:09 EDT Tel , Service support , Chest X-Ray 01/05/19 19:24 IMPRESSION: No acute thoracic pathology. Electronically Signed: Dash Hicks, at 19:35 EDT Tel , Service support , None Operations: None Procedures: None Summary of Care Provided: 73-year-old with past medical history of dementia, hypertension, resident at home who comes in with altered mental status. Her management was as follows:. 1. Acute metabolic encephalopathy secondary to acute E. Coli UTI, h/o baseline dementia, dependent for all her IADLs and most of her ADLs, Patient was hypoactive at admission and improved to being alert, responsive to verbal commands. She is at baseline not oriented to self person or place. She improved over the course of the hospital stay back to her baseline according to her family 2. Acute E. coli UTI, pansensitive, managed initially on IV ceftriaxone and discharged on cefdinir. 3. Hypertension, controlled, on amlodipine. 4. Overactive bladder Patient was seen by PT and OT and skilled for subacute care. Patient Problems: Active and Suspected Problems (Last Reviewed 01/05/19 @ 22:17 by Santos Last MD) Acute encephalopathy (Acute) Cystitis (Acute) Subjective: See progress note of the day Objective: See progress note of the day - Physical Exam Vital Signs Temp Pulse Resp BP Pulse Ox 97.9 F 51 L 16 111/52 L 97 01/09/19 07:30 01/09/19 07:30 01/09/19 07:30 01/09/19 07:30 01/09/19 07:30 Oxygen Delivery Method Room Air Weight: 65.5 kg Body Mass Index (BMI) 24.7 Intake and Output for Last 24 Hours 01/07/19 01/08/19 01/09/19 23:59 23:59 23:59 Intake Total 450 / 450 300 / 300 Balance 450 / 450 300 / 300 Microbiology Past 72 Hours 01/05/19 21:45 Blood Culture - Preliminary Blood Culture (Wb) - Anticubital Right No growth in 48 hours. 01/05/19 21:50 Blood Culture - Preliminary Blood Culture (Wb) - Right Wrist No growth in 48 hours. 01/05/19 20:15 Urine Culture - Final Urine, Catheterized Presumptive E. coli Discharge Diet: No Restrictions Discharge Activity: Return to Normal Activity May resume sexual activity in: No Restrictions Weight Bearing Status: Weight bearing as tolerated Home Medications: Medications to take at Discharge Cyanocobalamin (Vitamin B-12) [Vitamin B12] 2,500 mcg PO DAILY 08/25/18 Mirtazapine 15 mg PO DAILY 08/25/18 Risperidone 0.25 mg BID 08/25/18 Amlodipine Besylate 2.5 mg PO DAILY #0 08/27/18 Escitalopram Oxalate [Lexapro] 10 mg PO DAILY 01/06/19 Cefdinir 300 mg PO BID #4 cap 01/09/19 Following Prescrptions Were Given to Patient: Cefdinir 300 mg PO BID #4 cap Primary Care Physician: Vernon Moore DO [Primary Care Provider] - Please follow up with your Primary Care Physician in: within 1-2 weeks Disposition: Home Medical Necessity - Tobacco Use Smoking Status: Unknown if ever smoked Tobacco Use: Non-smoker Meaningful Use Info Meaningful Use Diagnoses (Choose all that apply): None applicable Code Visit Inpatient E&M: 04912 Disch Hosp
--- NOTE | 2019-01-09 16:25 | CASEMGMT ---
Social Work Note JAISON received call from Anjali at [facility] stating pre-cert has been obtained and pt is able to discharge to [facility] today. Physician updated. JAISON faxed completed discharge paperwork to Anjali at [facility] including transfer to extended care facility, signed medication list and any scripts. Original in SNF folder and copy on pt's chart. JAISON completed convalescent [facility] in [facility]. Original in SNF folder and copy on pt's chart. JAISON called [facility] and earliest they are able to transport pt is 8:00pm. JAISON placed a call to [facility] and earliest they are able to transport is 6:30pm. JAISON arranged transportation via cot through [facility] for 6:30pm. Transportation form completed, placed on SNF folder and copy on pt's chart. RN and secretary specialist updated on transportation time. JAISON placed a call to Anjali at [facility] and updated her on transportation time. JAISON placed a call to pt's daughter Sujata and updated her on approval to [facility] and discharge today and of transportation time. Sujata states that at this time she has no way to update pt's Art but that she will try to update him when she is able to do so. Sujata states Art was at [facility] earlier and was informed that pt would be discharged to [facility] today. Plan: [facility] today skilled with [facility] transporting via cot at 6:30pm Wanda MORRISON, PLASTIC EXTRUSION OPERATOR
== END 2019-01-09 18:49 | disposition skilled nursing facility (03) | DRG 689 ==
LOC: ED 19:29 → MS3 22:25
PROVIDERS: Admitting Provider Hospitalist; Emergency Provider Emergency Medicine; Family Provider Family Medicine; PCP Family Medicine; Referring Provider Hospitalist; Visit Provider Internal Medicine
DX: N30.00 Acute cystitis without hematuria (principal); G93.41 Metabolic encephalopathy; I10 Essential (primary) hypertension; B96.20 Unspecified Escherichia coli [E. coli] as the cause of diseases classified elsewhere; F03.90 Unspecified dementia, unspecified severity, without behavioral disturbance, psychotic disturbance, mood disturbance, and anxiety; N32.81 Overactive bladder; Z87.891 Personal history of nicotine dependence
CPT/HCPCS: 36415; 70450; 71045; 80048; 81001; 84484; 85025; 87040; 87086; 87088; 87186; 92526; 92610; 93005; 97110; 97162; 97166; 97530; 99285; J7030; J7050; A4216